=== PATIENT | male | born 1930 | race Caucasian/White ===

== ENCOUNTER 2017-07-15 16:06 | Inpatient (IN) | payer OTHER, BC ==
[~2017-07-15] VITALS: Ht 182.9 cm; Wt 99.0 kg
[~2017-07-15 16:06] MED LIST: ACET-1138 PO; ASPEC325 PO; ATOR-22 PO; CYCL10TA6 PO; DOCU-94 PO; FINA5TAB PO; FRRG PO; GABA-112 PO; HYDR12.55 PO; IBUP-1451 PO; LOSA50TA6 PO; METO25TA56 PO; PANT40TA PO; POTA20TA16 PO; TAMS0.4C38 PO; TERA1CAP63 PO; ULT50X PO; ZINC PO
[2017-07-15 16:53] LABS: BASO % 0.3 %; BASO ABS # 0.03 K/uL (0-0.2); EOS % 0.3 %; EOS ABS # 0.03 K/uL (0-0.5); HEMATOCRIT 42.5 % (42-52); HEMOGLOBIN 15.2 g/dL (14.0-18.0); IG# 0.05 K/uL (0.00-0.02); LYMPH % 6.4 %; LYMPH ABS # 0.63 K/uL (1.2-3.4); MEAN CELL VOLUME 95.7 fL (80-100); MEAN CORPUSCULAR HEMOGLOBIN 34.2 pg (25-34); MEAN CORPUSCULAR HGB CONC 35.8 g/dl (32-36); MONO % 7.6 %; MONO ABS # 0.75 K/uL (0.11-0.59); NEUT % 84.9 %; NEUT ABS # 8.33 K/uL (1.4-6.5); PLATELET COUNT 138 K/uL (130-400); RED CELL DISTRIBUTION WIDTH CV 13.3 % (11.5-14.5); RED CELL DISTRIBUTION WIDTH SD 46.3 fL (36.4-46.3); WHITE BLOOD COUNT 9.82 K/uL (4.8-10.8)
[2017-07-15 17:03] LABS: INR 1.1 (0.9-1.1); PTT PATIENT 23.6 SECONDS (21.0-31.0)
[2017-07-15 17:03] LABS: ISTAT CREATININE 1.1 mg/dl (0.6-1.3); ISTAT IONIZED CALCIUM 0.99 mmol/l (1.12-1.32); ISTAT POTASSIUM 3.9 mEq/L (3.3-5.0)
[2017-07-15 17:16] LABS: ALBUMIN 3.8 gm/dl (3.4-5.0); ALT/SGPT 26 U/L (12-78); BLOOD UREA NITROGEN 19 mg/dl (7-18); CALCIUM 8.3 mg/dl (8.5-10.1); CARBON DIOXIDE 24 mmol/L (21-32); CREATININE 1.25 mg/dl (0.60-1.40); GLUCOSE 169 mg/dl (70-99); LIPASE 134 U/L (73-393); POTASSIUM 3.7 mmol/L (3.5-5.1); SODIUM 137 mmol/L (136-145)
[2017-07-15 17:25] LABS: ALKALINE PHOSPHATASE 84 U/L (45-117); AST/SGOT 34 U/L (15-37); TOTAL PROTEIN 7.5 gm/dl (6.4-8.2)
[2017-07-15] MEDS ORDERED: OPTIRAY 320 IV PRN (17:30)
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
[2017-07-15] MEDS ORDERED: ONDANSETRON INJ 2 MG/ML 2 ML VIAL IV STA (18:10)
[2017-07-15] MEDS ORDERED: MoRPHine SULFATE 2 MG/ML CARP IV STA (18:10)
[2017-07-15] MEDS ORDERED: MULT-513 PO (18:40)
[2017-07-15] MEDS ORDERED: ASCA500 PO (18:40)
[2017-07-15] MEDS ORDERED: CHOL400C7 PO (18:40)
[2017-07-15] MEDS ORDERED: FERR1TAB13 PO (18:40)
[2017-07-15] MEDS ORDERED: OMEG10002 PO (18:40)
[2017-07-15] MEDS ORDERED: CYAN100T PO (18:40)
[2017-07-15] MEDS ORDERED: VITA1TAB4 PO (18:40)
[2017-07-15] MEDS ORDERED: ZINCCAP5 PO (18:40)
[2017-07-15] MEDS ORDERED: CRD4 PO (18:40)
[2017-07-15] MEDS ORDERED: VNTHFA/IN INH (18:40)
[2017-07-15] MEDS ORDERED: SNC/20 PO (18:40)
[2017-07-15] MEDS ORDERED: CLC100 PO (18:40)
[2017-07-15] MEDS ORDERED: ONDANSETRON INJ 2 MG/ML 2 ML VIAL IV PRN (18:45)
[2017-07-15] MEDS ORDERED: IBUPROFEN 800 MG TAB PO PRN (18:45)
[2017-07-15] MEDS ORDERED: ZOLPIDEM TARTRATE 5 MG TAB PO PRN (18:45)
[2017-07-15] MEDS ORDERED: CYCLOBENZAPRINE HCL 10 MG TAB PO PRN (18:45)
[2017-07-15] MEDS ORDERED: MoRPHine SULFATE 4 MG/ML 1 ML CARP\\VIAL IV PRN (18:45)
[2017-07-15] MEDS ORDERED: MAGNESIUM HYDROXIDE SUSP 30 ML UDC PO PRN (18:45)
[2017-07-15] MEDS ORDERED: POLYETHYLENE (MIRALAX) 17 GM PACK PO PRN (18:45)
[2017-07-15] MEDS ORDERED: ALUMINUM/MAGNESIUM/SIMETH (MAALOX MAX) 30 ML UDC PO PRN (18:45)
[2017-07-15] MEDS ORDERED: DOCUSATE SODIUM 100 MG CAP PO PRN (18:45)
[2017-07-15] MEDS ORDERED: ACETAMINOPHEN 325 MG TAB PO PRN (18:45)
[2017-07-15] MEDS ORDERED: HydrALAZINE HCL 20 MG/ML VIAL IV. PRN (19:00)
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
[2017-07-15] MEDS: HYDROCODONE/ACETAMIN 5/325MG TAB PO PRN (19:25)
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
--- NOTE | 2017-07-15 20:11 | DIAGNOSTIC IMAGING REPORT ---
SOFT TISS HEAD/NECK-THYROID CLINICAL HISTORY: 86 years-old Male presenting with thyroid nodule. TECHNIQUE: Real-time grayscale and color Doppler ultrasound imaging of the thyroid and base of the neck was performed. COMPARISON: CT chest performed the same day. FINDINGS: Right lobe: Normal echogenicity and echotexture. The right lobe of the thyroid measures 1.4 x 4.3 x 1.6 cm. No nodules. No parenchymal hyperemia. Left lobe: Normal echogenicity and echotexture. The left lobe of the thyroid measures 2.7 x 4.4 x 2.0 cm. Lower pole well-defined, taller than wide heterogeneously hyperechoic nodule with internal calcification. This nodule measures 2.3 x 2.5 x 1.7 cm. No parenchymal hyperemia. Isthmus: The isthmus measures 2 mm in thickness. No nodules. IMPRESSION: 2.5 cm low suspicion to intermediate suspicion pattern nodule in the lower pole of the left thyroid lobe. Fine-needle aspiration recommended per the [place] [employer] criteria. This is nonurgent and can be done on an outpatient basis. Electronically signed by: Cliff Mcgregor M.D. 07/15/2017 8:09 PM Dictated Date/Time: 07/15/2017 8:06 PM
[2017-07-15 20:43] VITALS: BP 181/80; PULSE 85; TEMP 36.7; O2SAT 99; Ht 182.9 cm; Wt 99.0 kg
[2017-07-15] MEDS: SODIUM CHLORIDE 0.9% 1000ML 1,000 ML IV SCH (20:45)
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
[2017-07-15] MEDS: DOXAZosin MESYLATE TAB 4 MG TAB PO SCH (22:30)
[2017-07-15] MEDS: ATORVASTATIN 20 MG TAB PO SCH (22:30)
[2017-07-15] MEDS: GABAPENTIN 100 MG CAP PO SCH (22:30)
[2017-07-15] MEDS: ALBUTEROL HFA 8 GM INHALER INH SCH (22:31)
[2017-07-15] MEDS: HEPARIN SOD 5000 UNIT/0.5 ML CARP SQ SCH (22:32)
[2017-07-15 23:45] VITALS: BP 121/63; PULSE 92; TEMP 37.1; O2SAT 97
[2017-07-16] VITALS (8 sets, daily range): BP systolic 123–171; BP diastolic 67–85; PULSE 78–98; TEMP 36.4–37.2; O2SAT 96–99
[2017-07-16] MEDS ORDERED: PERFLUTREN LIPID MICROSPHERE (DEFINITY) IV ONE (07:13)
[2017-07-16] MEDS: ALBUTEROL HFA 8 GM INHALER INH SCH ×3 (07:37→20:26)
[2017-07-16] MEDS: CEROVITE ADV FORMULA TAB PO SCH (07:38)
[2017-07-16] MEDS: FINASTERIDE 5 MG TAB PO SCH (07:38)
[2017-07-16] MEDS: CYANOCOBALAMIN 100 MCG TAB (VIT B-12) PO SCH (07:38)
[2017-07-16] MEDS: PANTOprazole SOD 40 MG TAB PO SCH (07:38)
[2017-07-16] MEDS: ASCORBIC ACID 500 MG TAB PO SCH (07:38)
[2017-07-16] MEDS: HYDROCHLOROTHIAZIDE 25 MG TAB PO SCH (07:39)
[2017-07-16] MEDS: ASPIRIN 81 MG ECTAB PO SCH (07:39)
[2017-07-16] MEDS: CHOLECALCIFEROL 400 INTER.UNIT TAB PO SCH (07:40)
[2017-07-16] MEDS: TROSPIUM: ORDER AWAITING ACTION SCH ×2 (07:40→15:34)
[2017-07-16] MEDS: OMEGA-3 (PURIFIED FISH OIL) 1 GM CAP PO SCH (07:40)
[2017-07-16] MEDS: HEPARIN SOD 5000 UNIT/0.5 ML CARP SQ SCH ×2 (07:42→20:29)
[2017-07-16] MEDS: HYDROCODONE/ACETAMIN 5/325MG TAB PO PRN (07:43)
[2017-07-16] MEDS: SODIUM CHLORIDE 0.9% 1000ML 1,000 ML IV SCH (07:43)
[2017-07-16 08:06] LABS: CALCIUM 7.7 mg/dl (8.5-10.1); CREATININE 1.06 mg/dl (0.60-1.40); POTASSIUM 3.5 mmol/L (3.5-5.1)
[2017-07-16 08:09] LABS: PHOSPHORUS 2.8 mg/dl (2.5-4.9)
[2017-07-16 08:31] LABS: BASO % 0.6 %; BASO ABS # 0.03 K/uL (0-0.2); EOS % 2.5 %; EOS ABS # 0.12 K/uL (0-0.5); HEMATOCRIT 35.5 % (42-52); HEMOGLOBIN 12.2 g/dL (14.0-18.0); IG# 0.04 K/uL (0.00-0.02); LYMPH % 22.9 %; LYMPH ABS # 1.11 K/uL (1.2-3.4); MEAN CELL VOLUME 96.7 fL (80-100); MEAN CORPUSCULAR HEMOGLOBIN 33.2 pg (25-34); MEAN CORPUSCULAR HGB CONC 34.4 g/dl (32-36); MEAN PLATELET VOLUME 10.1 fL (7.4-10.4); MONO % 11.5 %; MONO ABS # 0.56 K/uL (0.11-0.59); NEUT % 61.7 %; NEUT ABS # 2.99 K/uL (1.4-6.5); PLATELET COUNT 107 K/uL (130-400); RED CELL DISTRIBUTION WIDTH CV 13.5 % (11.5-14.5); RED CELL DISTRIBUTION WIDTH SD 47.5 fL (36.4-46.3); WHITE BLOOD COUNT 4.85 K/uL (4.8-10.8)
[2017-07-16] MEDS ORDERED: METOPROLOL TARTRATE 25 MG TAB PO SCH (09:00)
[2017-07-16] MEDS ORDERED: MAGNESIUM SULFATE 1GM / D5W 1 GM in PREMIXED IN D5W 100 ML IV ONE (09:00)
[2017-07-16] MEDS ORDERED: LOSARTAN POTASSIUM 50 MG TAB PO SCH (09:00)
--- NOTE | 2017-07-16 09:26 | ECHOCARDIOGRAM REPORT ---
*NOTICE TO RECEIVING REPUBLICAN AGENCY This information is strictly Confidential and protected under [place] law. [place] law prohibits you from making any further disclosure of this information unless further disclosure is expressly permitted by the written consent of the person to whom it pertains or is authorized by law. A general authorization for the release of medical or other information is not sufficient for this purpose. Hospital accepts no responsibility if the information is made available to any other person, INCLUDING THE PATIENT. Interpretation Summary * Name: JOSE G ROBERSON Study Date: 07/16/2017 06:43 AM BP: 123/71 mmHg * Patient Location: C.2T\S\S242\S\2 HR: 88 * : 1930 (M/d/yyyy) Gender: Male Height: 72 in * Age: 86 yrs Ethnicity: [place] Weight: 217 lb * Ordering Physician: Leonard Champion * Referring Physician: Self, Referred * Performed By: Danielle Reyes RDCS * * Reason For Study: A-fib * BSA: 2.2 m2 * -- Conclusions -- * Left ventricular systolic function is normal. * The left ventricular wall motion is normal. * Aortic valve sclerosis mild, without significant aortic valvular stenosis. * Right ventricular systolic pressure is normal. Procedure Details * A complete two-dimensional transthoracic echocardiogram was performed (2D, M-mode, Doppler and color flow Doppler). * A contrast injection of Definity was performed to improve assessment of LV function. * Contrast was injected into an intravenous site in the left arm. * One vial of Definity ultrasound contrast was diluted in normal saline to a total volume of 10 ml. A total of '2' ml of solution was administered during imaging. * Lot # [id number] of Definity utilized for procedure. * Expiration date 1 JUL 30. * The attending nurse who injected the contrast agent was Tirso Hill RN. Left Ventricle * The left ventricle is normal in size. * There is normal left ventricular wall thickness. * Ejection Fraction = 65-70%. * Left ventricular systolic function is normal. * The left ventricular wall motion is normal. Right Ventricle * The right ventricle is normal in size and function. Atria * The left atrial size is normal. * Right atrial size is normal. Mitral Valve * The mitral valve anatomy is normal. * There is no mitral regurgitation noted. Tricuspid Valve * The tricuspid valve is not well visualized, but is grossly normal. * There is trace tricuspid regurgitation. * Right ventricular systolic pressure is normal. Aortic Valve * The aortic valve is not well visualized. * Aortic valve sclerosis mild, without significant aortic valvular stenosis. * No hemodynamically significant valvular aortic stenosis. * There is no significant aortic regurgitation. Great Vessels * The aortic root is normal size. Pericardium/Pleural * There is no pericardial effusion. Great Vessels * Normal inferior vena cava diameter and respiratory variation suggests normal central venous pressure. MMode 2D Measurements and Calculations IVSd 1.0 cm LVIDd 4.1 cm LVIDs 2.6 cm LVPWd 1.2 cm IVS/LVPW 0.87 FS 36.1 % EDV(Teich) 73.6 ml ESV(Teich) 24.8 ml EF(Teich) 66.3 % EDV(cubed) 68.2 ml ESV(cubed) 17.8 ml EF(cubed) 74.0 % LV mass(C)d 145.8 grams LV mass(C)dI 66.1 grams/m\S\2 SV(Teich) 48.8 ml SI(Teich) 22.1 ml/m\S\2 SV(cubed) 50.4 ml SI(cubed) 22.9 ml/m\S\2 Ao root diam 3.8 cm Ao root area 11.4 cm\S\2 LA dimension 3.4 cm asc Aorta Diam 3.5 cm LA/Ao 0.89 LVAd ap4 27.2 cm\S\2 LVLd ap4 7.1 cm EDV(MOD-sp4) 82.6 ml EDV(sp4-el) 88.2 ml LVAs ap4 13.0 cm\S\2 LVLs ap4 5.7 cm ESV(MOD-sp4) 24.4 ml ESV(sp4-el) 24.8 ml EF(MOD-sp4) 70.5 % EF(sp4-el) 71.9 % LVAd ap2 30.8 cm\S\2 LVLd ap2 6.9 cm EDV(MOD-sp2) 108.9 ml EDV(sp2-el) 116.8 ml LVAs ap2 15.9 cm\S\2 LVLs ap2 5.7 cm ESV(MOD-sp2) 35.2 ml ESV(sp2-el) 37.3 ml EF(MOD-sp2) 67.7 % EF(sp2-el) 68.1 % LVLd %diff -3.33 % EDV(MOD-bp) 94.4 ml LVLs %diff -0.19 % ESV(MOD-bp) 29.4 ml EF(MOD-bp) 68.9 % SV(MOD-sp4) 58.3 ml SI(MOD-sp4) 26.4 ml/m\S\2 SV(MOD-sp2) 73.7 ml SI(MOD-sp2) 33.4 ml/m\S\2 SV(MOD-bp) 65.1 ml SI(MOD-bp) 29.5 ml/m\S\2 SV(sp4-el) 63.4 ml SI(sp4-el) 28.7 ml/m\S\2 SV(sp2-el) 79.6 ml SI(sp2-el) 36.1 ml/m\S\2 Doppler Measurements and Calculations MV E max satya 137.1 cm/sec MV dec time 0.26 sec Ao V2 max 165.6 cm/sec Ao max PG 11.0 mmHg Ao max PG (full) 6.5 mmHg LV V1 max PG 4.5 mmHg LV V1 max 105.9 cm/sec PA V2 max 88.2 cm/sec PA max PG 3.1 mmHg PA acc slope 303.7 cm/sec\S\2 PA acc time 0.15 sec TR max satya 114.0 cm/sec PA pr(Accel) 9.3 mmHg
[2017-07-16] MEDS ORDERED: NURSING VERBAL MED ORDER ONE (13:15)
[2017-07-16] MEDS ORDERED: LOSARTAN POTASSIUM 50 MG TAB PO ONE (13:30)
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
[2017-07-16] MEDS: DOXAZosin MESYLATE TAB 4 MG TAB PO SCH (20:25)
[2017-07-16] MEDS: ATORVASTATIN 20 MG TAB PO SCH (20:26)
[2017-07-16] MEDS: GABAPENTIN 100 MG CAP PO SCH (20:26)
[2017-07-16] MEDS ORDERED: METOPROLOL SUCC 25MG EXT REL TAB PO SCH (21:00)
[2017-07-17 03:45] VITALS: BP 132/75; PULSE 78; TEMP 36.7; O2SAT 97
[2017-07-17 07:32] VITALS: BP 133/81; PULSE 76; TEMP 36.7; O2SAT 95
[2017-07-17 07:43] LABS: BASO % 0.5 %; BASO ABS # 0.02 K/uL (0-0.2); EOS % 2.6 %; HEMATOCRIT 36.4 % (42-52); HEMOGLOBIN 12.3 g/dL (14.0-18.0); IG# 0.01 K/uL (0.00-0.02); LYMPH % 24.1 %; LYMPH ABS # 0.93 K/uL (1.2-3.4); MEAN CELL VOLUME 96.8 fL (80-100); MEAN CORPUSCULAR HEMOGLOBIN 32.7 pg (25-34); MEAN CORPUSCULAR HGB CONC 33.8 g/dl (32-36); MEAN PLATELET VOLUME 9.7 fL (7.4-10.4); MONO % 11.7 %; MONO ABS # 0.45 K/uL (0.11-0.59); NEUT % 60.8 %; NEUT ABS # 2.35 K/uL (1.4-6.5); PLATELET COUNT 104 K/uL (130-400); RED CELL DISTRIBUTION WIDTH CV 13.2 % (11.5-14.5); WHITE BLOOD COUNT 3.86 K/uL (4.8-10.8)
[2017-07-17] MEDS: ALBUTEROL HFA 8 GM INHALER INH SCH ×2 (07:48→14:00)
[2017-07-17] MEDS: OMEGA-3 (PURIFIED FISH OIL) 1 GM CAP PO SCH (07:51)
[2017-07-17] MEDS: HYDROCHLOROTHIAZIDE 25 MG TAB PO SCH (07:52)
[2017-07-17] MEDS: ASCORBIC ACID 500 MG TAB PO SCH (07:52)
[2017-07-17] MEDS: ASPIRIN 81 MG ECTAB PO SCH (07:52)
[2017-07-17] MEDS: CHOLECALCIFEROL 400 INTER.UNIT TAB PO SCH (07:52)
[2017-07-17] MEDS: PANTOprazole SOD 40 MG TAB PO SCH (07:53)
[2017-07-17] MEDS: FINASTERIDE 5 MG TAB PO SCH (07:53)
[2017-07-17] MEDS: CEROVITE ADV FORMULA TAB PO SCH (07:53)
[2017-07-17] MEDS: CYANOCOBALAMIN 100 MCG TAB (VIT B-12) PO SCH (07:53)
[2017-07-17] MEDS: HYDROCODONE/ACETAMIN 5/325MG TAB PO PRN (07:56)
[2017-07-17] MEDS: TROSPIUM: ORDER AWAITING ACTION SCH ×2 (08:00)
[2017-07-17 08:12] LABS: CALCIUM 8.1 mg/dl (8.5-10.1); CREATININE 1.12 mg/dl (0.60-1.40); PHOSPHORUS 2.8 mg/dl (2.5-4.9); POTASSIUM 3.5 mmol/L (3.5-5.1)
[2017-07-17] MEDS: HEPARIN SOD 5000 UNIT/0.5 ML CARP SQ SCH (08:24)
[2017-07-17] MEDS ORDERED: LOSARTAN POTASSIUM 50 MG TAB PO SCH (09:00)
[2017-07-17 10:32] VITALS: BP 154/71; PULSE 108; O2SAT 96
[2017-07-17] MEDS ORDERED: MAGNESIUM SULFATE 1GM / D5W 1 GM in PREMIXED IN D5W 100 ML IV ONE (11:30)
[2017-07-17] MEDS ORDERED: POTASSIUM CHLORIDE 10 MEQ TABCR PO ONE (11:30)
[2017-07-17] MEDS ORDERED: LOSA50TA6 PO (11:51)
[2017-07-17] MEDS ORDERED: METO-452 PO (11:51)
[2017-07-17] MEDS ORDERED: HYDR-5688 PO (11:51)
[2017-07-17] MEDS ORDERED: ACET-1047 PO (11:51)
[2017-07-17] MEDS ORDERED: CYCL10TA6 PO (11:51)
[2017-07-17] MEDS ORDERED: APIX1TAB3 PO (11:51)
[2017-07-17 11:52] VITALS: BP 137/76; PULSE 84; TEMP 36.7; O2SAT 97
--- NOTE | 2017-07-17 12:41 | CARDIOLOGY PROGRESS NOTE ---
DATE: 07/17/2017 SUBJECTIVE: Mr. Gavin is resting comfortably in bed without complaints of chest pain, dyspnea, or palpitations. A long discussion was held with the patient regarding his new onset atrial fibrillation and methods of treatment. OBJECTIVE: VITAL SIGNS: Blood pressure 137/76 with a regular pulse of 80. Respiratory rate is 18. The patient is afebrile at 36.7 degrees Celsius. Saturations 97% on room air. NECK: Supple with full carotid upstrokes. No carotid bruits. Jugular venous pressure is flat at 90 degrees. There is no thyromegaly. CARDIOVASCULAR: Reveals a regular rhythm with normal S1 and S2. Heart sounds are distant. No obvious murmurs. LUNGS: Clear without rales, rhonchi, or wheezes. ABDOMEN: Soft, nontender without bruits. EXTREMITIES: Reveal intact radial artery pulses bilaterally. There is no peripheral edema. DATA: CBC notes hemoglobin 12.3, hematocrit 36.4, white count 3.6, and platelet count 104,000. Electrolytes note a sodium of 139, potassium 3.5, chloride 106, bicarbonate 26, BUN 12, creatinine 1.12, and glucose 129. quality assurance monitor notes sinus rhythm and sinus tachycardia. No recurrent atrial fibrillation. EKG this morning notes sinus rhythm with first degree AV block, but no other abnormalities. IMPRESSION AND PLAN: 1. Paroxysmal atrial fibrillation - we had a long discussion regarding anticoagulation therapy. [facility], and therefore, I suspect he will need to take warfarin. Would also increase the dose of his beta allan. 2. Hypertension -- controlled. 3. Dyslipidemia -- continue statin. 4. Benign prostatic hyperplasia. 5. Degenerative joint disease - status post bilateral total knee replacement. MTDD
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
[2017-07-17 13:21] VITALS: BP 137/76; PULSE 84; TEMP 36.7; O2SAT 97
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
== END 2017-07-17 15:11 | disposition home or self-care (01) | DRG 310 ==
LOC: EDBD 16:06 → C.EDB 16:07 → C.2T 18:47 → ENRESERV 18:55
PROVIDERS: ADMIT Hospitalist; ATTEND Family Medicine
DX: I48.91 Unspecified atrial fibrillation (principal); M54.6 Pain in thoracic spine; M54.2 Cervicalgia; R07.81 Pleurodynia; S09.90XA Unspecified injury of head, initial encounter; I11.9 Hypertensive heart disease without heart failure; E83.42 Hypomagnesemia; R11.0 Nausea; E04.1 Nontoxic single thyroid nodule; E78.5 Hyperlipidemia, unspecified; I45.81 Long QT syndrome; N40.0 Benign prostatic hyperplasia without lower urinary tract symptoms; E66.9 Obesity, unspecified; Z79.899 Other long term (current) drug therapy; Z96.653 Presence of artificial knee joint, bilateral; Z68.29 Body mass index [BMI] 29.0-29.9, adult; Z87.891 Personal history of nicotine dependence; Z88.8 Allergy status to other drugs, medicaments and biological substances; V47.5XXA Car driver injured in collision with fixed or stationary object in traffic accident, initial encounter; Y92.411 Interstate highway as the place of occurrence of the external cause; Y93.I9 Activity, other involving external motion; Y99.8 Other external cause status

== ENCOUNTER 2021-02-24 09:15 | Observation (INO) ==
--- NOTE | 2021-02-07 12:15 | PAT Medication Instructions ---
Medication Instructions Date of Service February 07, 2021 Home Medications acetaminophen 325 mg tablet (Tylenol) 650 mg PO Q4 PRN apixaban 5 mg tablet 5 mg PO BID atorvastatin 20 mg tablet (Lipitor) 20 mg PO DAILY doxazosin 4 mg tablet,extended release 24 hr (Cardura XL) 4 mg PO DAILY losartan 50 mg tablet (Cozaar) 50 mg PO DAILY potassium chloride 20 mEq tablet,extended release(part/cryst) (Klor-Con M) 40 meq PO BID trospium 20 mg tablet 20 mg PO BID zinc 50 mg tablet 50 mg PO DAILY hydrochlorothiazide 25 mg tablet 12.5 mg PO DAILY cholecalciferol (vitamin D3) 125 mcg (5,000 unit) tablet (Vitamin D3) 125 mcg PO DAILY pantoprazole 40 mg tablet,delayed release 40 mg PO DAILY tolterodine 1 mg tablet 1 mg PO DAILY ASK your prescriber and surgeon apixaban 5 mg tablet 5 mg PO BID DO NOT take the morning of surgery losartan 50 mg tablet (Cozaar) 50 mg PO DAILY potassium chloride 20 mEq tablet,extended release(part/cryst) (Klor-Con M) 40 meq PO BID trospium 20 mg tablet 20 mg PO BID zinc 50 mg tablet 50 mg PO DAILY hydrochlorothiazide 25 mg tablet 12.5 mg PO DAILY cholecalciferol (vitamin D3) 125 mcg (5,000 unit) tablet (Vitamin D3) 125 mcg PO DAILY tolterodine 1 mg tablet 1 mg PO DAILY Take morning of surgery With a small sip of water, OTHERWISE NOTHING TO EAT OR DRINK AFTER MIDNIGHT: acetaminophen 325 mg tablet (Tylenol) 650 mg PO Q4 PRN (okay to take up to 4 hours prior to surgery if needed) atorvastatin 20 mg tablet (Lipitor) 20 mg PO DAILY doxazosin 4 mg tablet,extended release 24 hr (Cardura XL) 4 mg PO DAILY trospium 20 mg tablet 20 mg PO BID pantoprazole 40 mg tablet,delayed release 40 mg PO DAILY Take evening before surgery acetaminophen 325 mg tablet (Tylenol) 650 mg PO Q4 PRN (if needed) potassium chloride 20 mEq tablet,extended release(part/cryst) (Klor-Con M) 40 meq PO BID trospium 20 mg tablet 20 mg PO BID Other Notes If you have any questions please call us at [phone] or [phone] or [phone] or [phone]
--- NOTE | 2021-02-08 10:04 | Anesthesiology Consultation ---
Date of Service February 08, 2021 Assessment & Plan (1) Encounter for pre-operative examination: - Preop UA: Surgeon ordered preop urine testing. Patient unable to void at PAT visit. He states he thinks it would be very difficult obtaining at later date. Left message with surgeon's office to either obtain or order for AM DOS at their discretion. - COVID screening: Per assessment on 02/08: Travel screen negative, no known COVID-19 positive contacts or current COVID-19 related symptoms. Patient vaccinated. Surgeon arranging preop COVID testing. Awaiting results. - Eliquis instructions: per surgeon/prescriber Chart Review Chart Review: Acceptable Risk for Surgery and Patient seen in Pre Admission Testing History Surgery Operation Date: 02/24/21 13:00 Proposed Procedures p Transurethral Resection Prostate - Faisal Dos Santos DO Height/Weight Height: 6 ft Weight: 97.2 kg Allergies Allergy/AdvReac Type Severity Reaction Status Date / Time lisinopril Allergy Intermediate Lip Verified 02/07/21 09:20 swelling Medications Home Medications Medication Instructions Recorded Confirmed Last Taken acetaminophen 325 mg tablet 500 mg PO Q4 PRN 04/17/18 02/08/21 Unknown (Tylenol) apixaban 5 mg tablet 5 mg PO BID 04/17/18 02/07/21 10/22/18 atorvastatin 20 mg tablet (Lipitor) 20 mg PO DAILY 04/17/18 02/07/21 10/22/18 doxazosin 4 mg tablet,extended 4 mg PO DAILY 04/17/18 02/07/21 10/22/18 release 24 hr (Cardura XL) losartan 50 mg tablet (Cozaar) 50 mg PO DAILY 04/17/18 02/07/21 10/22/18 potassium chloride 20 mEq 40 meq PO DAILY 04/17/18 02/08/21 10/22/18 tablet,extended release(part/cryst) (Klor-Con M) trospium 20 mg tablet 20 mg PO BID 04/17/18 02/07/21 10/22/18 zinc 50 mg tablet 30 mg PO DAILY 04/17/18 02/08/21 10/22/18 hydrochlorothiazide 25 mg tablet 12.5 mg PO DAILY 10/22/18 02/07/21 10/22/18 cholecalciferol (vitamin D3) 125 125 mcg PO DAILY 02/07/21 02/07/21 Unknown mcg (5,000 unit) tablet (Vitamin D3) pantoprazole 40 mg tablet,delayed 40 mg PO DAILY 02/07/21 02/07/21 Unknown release tolterodine 1 mg tablet 1 mg PO DAILY 02/07/21 02/07/21 Unknown Past Medical History Medical History Afib on Eliquis, monitored by PCP Arthritis GERD (gastroesophageal reflux disease) Hearing deficit HTN (hypertension) Hx of gallstones Hyperlipidemia Poor historian Urinary frequency Exercise / Class Metabolic Activity III < 4 Walking/Shop/Light housework Past Family History Family History Other No family history of adverse response to anesthesia No pertinent family history Past Surgical History Surgical History History of colonoscopy History of cystoscopy History of herniorrhaphy History of tooth extraction History of total knee replacement R/L Past Anesthesia History No Hx of Anesthesia Complications and No Family Hx of Anesthesia Complications History of PONV No Hx of PONV and No Hx of Motion Sickness Social History Smoking Status: Never smoker tobacco type: smokeless tobacco Do You Dip or Chew Tobacco: Yes (Advised NPO DOS) Hx Alcohol Use: Yes Alcohol type: beer alcohol intake frequency: a few times a month substance use type: does not use Review of Systems Patient denies chest pain, shortness of breath, fever, chills, cough, wheezing, palpitations. Physical Exam Vital Signs VITALS BP 145/79 P 83 TEMP 98.2 SP02 98%RA RESP 18 PHYSICAL Full cervical extension range of motion. Full TMJ range of motion. TMD 3 finger breaths Mallampati Score 3 Dentition: several missing teeth (few remaining) Lungs: clear throughout to auscultation Cardiac: regular rate, irregular rhythm, distant heart sounds Spine: normal Carotid arteries: negative bruit Extremities: no edema Lab Results Anesthesia Preop Results Results Anesthesia Widget: WBC 7.88 K/uL (4.8-10.8) 02/08/21 Hgb 14.6 g/dL (14.0-18.0) 02/08/21 Hct 42.7 % (42-52) 02/08/21 Plt 128 K/uL (130-400) L 02/08/21 Na 140 mmol/L (136-145) 02/08/21 K 3.3 mmol/L (3.5-5.1) L 02/08/21 Cl 108 mmol/L (98-107) H 02/08/21 CO2 26 mmol/L (21-32) 02/08/21 BUN 9 mg/dl (7-18) 02/08/21 Creat 0.95 mg/dl (0.6-1.4) 02/08/21 Glucose Level 132 mg/dl (70-99) H 02/08/21 Testing Electrocardiogram Date: 02/08/21 A. fib at 60bpm. Low voltage QRS. unconfirmed report. Chest X-Ray Date: 02/08/21 FINDINGS: Lung volumes are normal. Lungs are clear. There is no pneumothorax or pleural effusion. Mild cardiomegaly is unchanged. Mediastinal contours are normal. There is no evidence for pulmonary edema. IMPRESSION: No acute cardiopulmonary findings. Stable mild cardiomegaly. Echocardiogram Date: 07/16/17 EF 65-70% No RWMA. Mild AV sclerosis.
[~2021-02-24 09:15] MED LIST changes: -ACET-1138 PO; -ASPEC325 PO; -ATOR-22 PO; -CYCL10TA6 PO; -DOCU-94 PO; -FINA5TAB PO; -FRRG PO; -GABA-112 PO; -HYDR12.55 PO; -IBUP-1451 PO; +LACTATED RINGER'S 1,000 ML IV SCH; -LOSA50TA6 PO; -METO25TA56 PO; -PANT40TA PO; -POTA20TA16 PO; -TAMS0.4C38 PO; -TERA1CAP63 PO; -ULT50X PO; -ZINC PO; +ceFAZolin 2000MG 2,000 MG/15 ML SYR IV SCH
[2021-02-24] MEDS ORDERED: ONDANSETRON INJ 2 MG/ML 2 ML VIAL IV PRN ×2 (10:35→13:29)
[2021-02-24] MEDS ORDERED: oxyCODONE/ACETAMINOPHEN 5mg/325mg TAB PO PRN (10:35)
[2021-02-24] MEDS ORDERED: MoRPHine SULFATE 2 MG/ML CARP IV PRN (10:35)
[2021-02-24] MEDS ORDERED: BELLADONNA/OPIUM SUPP 60 MG SUPP PR PRN (10:35)
--- NOTE | 2021-02-24 10:35 | History & Physical Bridge Note ---
Date of Service February 24, 2021 History & Physical Bridge Note I have examined the patient, reviewed the History & Physical and in the interval since the performance of the History & Physical I have noted the following changes of clinical significance: no changes noted
[2021-02-24 12:47] LABS: Basophils # (auto) 0.01 K/uL (0-0.2); Basophils % (auto) 0.1 %; Eosinophils # (auto) 0.04 K/uL (0-0.5); Eosinophils % (auto) 0.6 %; Hematocrit (blood only) 40.8 % (42-52); Hemoglobin 13.6 g/dL (14.0-18.0); Immature Granulocytes # (auto) 0.05 K/uL (0.00-0.02); Immature Granulocytes % (auto) 0.7 %; Lymphocytes % (auto) 11.9 %; Mean Corpuscular Hgb Conc 33.3 g/dL (32-36); Mean Platelet Volume 9.6 fL (7.4-10.4); Monocytes # (auto) 0.68 K/uL (0.11-0.59); Monocytes % (auto) 10.1 %; Neutrophils # (auto) 5.17 K/uL (1.4-6.5); Neutrophils % (auto) 76.6 %; Platelet Count 117 K/uL (130-400); RDW Coefficient of Variation 13.8 % (11.5-14.5); RDW Standard Deviation 49.8 fL (36.4-46.3); Red Blood Count 4.12 M/uL (4.7-6.1); White Blood Count 6.75 K/uL (4.8-10.8)
[2021-02-24 13:03] LABS: Albumin Level 3.2 gm/dl (3.4-5.0); BUN Creatinine Ratio 7.2 (10-20); Calcium 7.7 mg/dl (8.5-10.1); Creatinine Clr Calc Pharmacy 25.4 ml/min; Est GFR (Non-African American) 23.3 ml/min; Potassium 3.4 mmol/L (3.5-5.1)
[2021-02-24 13:06] LABS: Albumin Globulin Ratio 0.9 (0.9-2); Bilirubin,Total 1.2 mg/dl (0.2-1); Globulin 3.4 gm/dl (2.5-4.0); Total Protein 6.6 gm/dl (6.4-8.2)
[2021-02-24] MEDS ORDERED: fentaNYL citrate 100 MCG/2 ML VIAL ONE (13:22)
[2021-02-24] MEDS ORDERED: LIDOCAINE 2% 2 ML VIAL/AMP(20MG/ML) INFIL ONE (13:22)
[2021-02-24] MEDS ORDERED: ONDANSETRON INJ 2 MG/ML 2 ML VIAL ONE (13:23)
[2021-02-24] MEDS ORDERED: PROPOFOL IV EMULSION 10 MG/ML 20 ML VIAL IV ONE (13:23)
[2021-02-24] MEDS ORDERED: ATROPINE SULFATE 0.1 MG/ML 10ML SYR IV PRN (13:29)
[2021-02-24] MEDS ORDERED: fentaNYL citrate 100 MCG/2 ML VIAL IV PRN (13:29)
[2021-02-24] MEDS ORDERED: ePHEDrine sulfate 50 MG/ML AMP IV PRN (13:29)
[2021-02-24] MEDS ORDERED: BELLADONNA/OPIUM SUPP 60 MG SUPP PR ONE (13:31)
--- NOTE | 2021-02-24 15:10 | Operative Report ---
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 Drains 24Fr [address] Catheter Anesthesia Type General Complications none Disposition Disposition: Recovery Room Indications Patient with obstruction due to prostate enlargement. Risks and benefits discussed at length. Description of Procedure Patient was consented and brought back to the operating room. Patient was placed under anesthesia in the supine position and moved to the dorsal lithotomy position. Patient was prepped and draped in the regular sterile fashion. A time out was completed. A 30degree Cystoscope was placed into the bladder and the entire bladder was examined. The UO's were identified as well as the bladder neck, trigone, dome, and the other important landmarks. The prostatic urethra and large lobes/adenoma was assessed and the veru and bladder neck identified and area/size was assessed. The resection scope was placed and the fine bipolar loop was selected. Starting at the 5 and 7 o'clock positions, a channel was created from bladder neck to the veru. With the channel created, the flow improved greatly. The lateral lobes were then resected from the 1 and 11 o'clock position sweeping down to the channel. The tissue was resected to the capsule fibers. The Specimen was removed and sent for analysis. The resection bed and any bleeding areas were fulgurated/cauterized and the entire area inspected. All bleeding was controlled. The bladder was inspected a final time. The bladder was emptied and irrigated. All specimen and debris was removed. The scope was removed with the bladder partially full. A catheter was placed and balloon elevated. This was easily irrigated. The patient was cleaned, aroused from anesthesia, and transferred to the pacu in stable condition having tolerated the procedure well with no complications. I was present and participated in all aspects of the procedure. The patient will be monitored in the PACU until transferred. Plan to observe post op overnight. Home with catheter for 10 days. I attest to the content of the Intraoperative Record and any orders documented therein. Any exceptions are noted below.
[2021-02-24] MEDS ORDERED: hydrALAZINE HCL 20 MG/ML VIAL IV ONE (16:03)
[2021-02-24] MEDS ORDERED: hydrALAZINE HCL 20 MG/ML VIAL ONE (16:06)
--- NOTE | 2021-02-24 16:49 | Anesthesiology Progress Note ---
Date of Service February 24, 2021 Anesthesia Post Procedure Vital Signs Vital Signs: Temp Pulse Pulse Resp BP Pulse Ox 02/24/21 16:31 61 18 177/102 H 100 02/24/21 16:16 58 L 18 181/93 H 99 02/24/21 16:06 60 18 176/94 H 96 02/24/21 15:56 58 L 14 169/103 H 100 02/24/21 15:46 36.8 C 63 16 170/102 H 99 02/24/21 15:39 59 L 12 182/102 H 100 02/24/21 15:29 58 L 16 175/103 H 100 02/24/21 15:19 36 C L 67 14 175/103 H 100 02/24/21 10:04 36.9 C 75 18 178/109 H 99 Transfer of Care Handoff Completed per policy Notes Mental Status: alert / awake / arousable and participated in evaluation Patient Amnestic to Procedure: Yes Nausea / Vomiting: adequately controlled Pain: adequately controlled Airway Patency, RR, SpO2: stable & adequate BP & HR: stable & adequate Hydration State: stable & adequate Anesthetic Complications: no major complications apparent and Pt Satisfied with anesthetic care
[2021-02-24] MEDS ORDERED: POTASSIUM CHLORIDE 20 MEQ/15 ML UDC PO STA (21:12)
[2021-02-24] MEDS: SODIUM CHLORIDE 0.9% 1000ML 1,000 ML IV SCH (21:16)
--- NOTE | 2021-02-24 21:41 | Hospitalist Consultation ---
Date of Consultation February 24, 2021 Assessment & Plan (1) Afib: 89 yo M w/ pMHx. of Atrial fibrillation, HTN, Polyneuropathy, hospitalized for BPH w/ LUTZ s/p TURP consulted by Dr. Dos Santos for atrial fibrillation. s/p TURP - Pain control in place, PRN Tylenol and Morphine - care per Urology Atrial fibrillation, rate controlled, [id number] 3 for age and HTN - on a monitored floor - EKG ordered - Eliquis held prior to procedure, continue to hold to day and discuss restarting tomorrow - continue to optimize electrolytes DAX cr. 2.38 up from 0.95 prior - holding HCTZ and Losartan - fluids running at 85/hr - continue to trend with AM labs HTN well controlled currently 138/94 - holding HCTZ and Losartan as above - if BP becomes elevated consider IV Hydralazine Hypokalemia - 40 oral potassium replacement - ordered am labs to evaluate K and Mg Code: full Diet: regular DVT: holding in the setting of recent procedure (2) Hypertension: (3) Polyneuropathy: (4) BPH w urinary obs/LUTS: (5) Hematuria: Supervising Physician Co-Signing Physician Notes Attending addendum: I have physically seen this patient, have supervised the medical residents activities, and agree with the H&P unless as otherwise noted. Assessment and Plan: Status post TURP- Postoperative care per primary urology team Atrial fibrillation/hypertension- Continue monitored bed Continue to hold Eliquis and restart at time okay with urology DAX/hypokalemia- Creatinine 2.38 upon admission, with baseline 0.95 Hold HCTZ and losartan Follow serial laboratories Continue IV fluids Remaining orders and notations as noted History of Present Illness Reason for Consultation: Atrial fibrillation Requesting Physician: Dr. Dos Santos Attending Physician: Faisal Dos Santos, II, DO History of Present Illness Jose Gavin is a 89-year-old male here with a past medical history of atrial fibrillation, HTN, polyneuropathy, hospitalized for BPH w/ LUTZ s/p TURP. He was doing well this evening with no current complaints and pain free. He has had atrial fibrillation for years and states that he is in it every time he goes to the CT clinic. He currently explained that he has been taking his Eliquis once a day rather than twice a day as he is concerned about increased bleeding. He has not been taking Eliquis leading up to the procedure. He lives alone and has had multiple falls. He walks with a cane. I brought up PT and OT seeing him while he was in the hospital but he was not interested in that at this time. He has a history of hearing loss and is going to get hearing aides in the near future. He has used tobacco for a long time and currently is using chew, he is in the contemplative stage of quitting. I asked if he would like a nicotine patch and he deferred at this time. He drinks 2-3 drinks when a friend will come over 1Xmonth, and 1 drink with a family member about 1Xweek. No recreation drug use. Allergies Allergy/AdvReac Type Severity Reaction Status Date / Time lisinopril Allergy Intermediate Lip Verified 02/24/21 09:52 swelling Home Medications Medication Instructions Recorded Confirmed Type acetaminophen 325 mg tablet 500 mg PO Q4 PRN 04/17/18 02/24/21 History (Tylenol) apixaban 5 mg tablet 5 mg PO BID 04/17/18 02/24/21 History atorvastatin 20 mg tablet (Lipitor) 20 mg PO DAILY 04/17/18 02/24/21 History doxazosin 4 mg tablet,extended 4 mg PO DAILY 04/17/18 02/24/21 History release 24 hr (Cardura XL) losartan 50 mg tablet (Cozaar) 50 mg PO DAILY 04/17/18 02/24/21 History potassium chloride 20 mEq 40 meq PO DAILY 04/17/18 02/24/21 History tablet,extended release(part/cryst) (Klor-Con M) trospium 20 mg tablet 20 mg PO BID 04/17/18 02/24/21 History zinc 50 mg tablet 30 mg PO DAILY 04/17/18 02/24/21 History hydrochlorothiazide 25 mg tablet 12.5 mg PO DAILY 10/22/18 02/24/21 History cholecalciferol (vitamin D3) 125 125 mcg PO DAILY 02/07/21 02/24/21 History mcg (5,000 unit) tablet (Vitamin D3) pantoprazole 40 mg tablet,delayed 40 mg PO DAILY 02/07/21 02/24/21 History release tolterodine 1 mg tablet 1 mg PO DAILY 02/07/21 02/24/21 History cephalexin 500 mg capsule 500 mg PO BID 7 Days #14 cap 02/25/21 Rx Patient History Medical History Afib on Eliquis, monitored by PCP Arthritis GERD (gastroesophageal reflux disease) Hearing deficit HTN (hypertension) Hx of gallstones Hyperlipidemia Poor historian Urinary frequency Surgical History History of colonoscopy History of cystoscopy History of herniorrhaphy History of tooth extraction History of total knee replacement R/L Family History Other No family history of adverse response to anesthesia No pertinent family history Social History (Updated 10/22/18 @ 15:40 by Shayne Reyes) Smoking Status: Never smoker Second Hand Exposure: No; Hx Alcohol Use: Yes Alcohol type: beer Hx Substance Use: No Preferred Language: Kazakh Communication Ability: Effective Wound/Ostomy Clinical Nurse Specialist Required: No Beliefs That Will Affect Care: None Current Living Situation: Alone How many Children do You have: 6 Feels Safe at Home: Yes Assistive Devices: Cane and Walker Review of Systems Review of Systems: Constitutional: denies fevers, chills, nausea, vomiting, weight loss ENT: denies stuffiness, sneezing, sore throat admits chronic rhinorrhea Cardiac: denies chest pain, palpitations Pulm.: denies cough, shortness of breath admits billy sputum production that has been chronic GI: denies blood in stool admits diarrhea prior to surgery that he relates to eating peaches : admits polyuria and hematuria Physical Exam Constitutional: WD/WN, vitals as above Eyes: PERRL, conjunctivae normal, anicteric sclerae ENMT: external ear and nose normal, oropharynx normal Neck: normal visual inspection Respiratory: normal respiratory effort, lungs clear to auscultation Cardiovascular: Rate/Rhythm: + irregularly irregular Extremities: no edema Gastrointestinal (Abdomen): normal bowel sounds, soft, nontender, no hepatosplenomegaly Skin: no rashes, warm and dry Neurologic: no focal motor deficits and not confused Speech / Cognition: normal speech Psychiatric: A+Ox3, euthymic affect Results & Data Results & Data ([facility]) Vital Signs (Past 12 Hours) Vital Signs Temp Pulse Pulse Resp BP Pulse Ox 09/16/21 18:15 36.7 C 68 16 138/94 100 02/24/21 18:00 66 12 151/93 H 100 02/24/21 17:45 71 16 168/97 H 98 02/24/21 17:30 36.6 C 65 20 178/112 H 98 02/24/21 17:01 68 17 178/93 H 98 02/24/21 16:56 60 18 172/110 H 96 02/24/21 16:46 67 18 175/102 H 98 02/24/21 16:31 61 18 177/102 H 100 02/24/21 16:16 58 L 18 181/93 H 99 02/24/21 16:06 60 18 176/94 H 96 02/24/21 15:56 58 L 14 169/103 H 100 02/24/21 15:46 36.8 C 63 16 170/102 H 99 02/24/21 15:39 59 L 12 182/102 H 100 02/24/21 15:29 58 L 16 175/103 H 100 02/24/21 15:19 36 C L 67 14 175/103 H 100 02/24/21 10:04 36.9 C 75 18 178/109 H 99 CBC Results Results Complete Blood Count Results: RBC 3.84 M/uL (4.7-6.1) L 02/25/21 WBC 6.98 K/uL (4.8-10.8) 02/25/21 Hgb 12.9 g/dL (14.0-18.0) L 02/25/21 Hct 39.1 % (42-52) L 02/25/21 Plt Count 100 K/uL (130-400) L 02/25/21 Chemistry (BMP) Results BMP Results: Sodium 137 mmol/L (136-145) 02/25/21 Potassium 3.9 mmol/L (3.5-5.1) 02/25/21 Chloride 104 mmol/L (98-107) 02/25/21 BUN 17 mg/dl (7-18) 02/25/21 Creatinine 2.11 mg/dl (0.6-1.4) H 02/25/21 Glucose 167 mg/dl (70-99) H 02/25/21 Resident Activity Tracking Resident Involvement: Resident Care Provided Care Provided: [facility] Medicine
[2021-02-24] MEDS ORDERED: ACETAMINOPHEN 325 MG TAB PO PRN (21:55)
[2021-02-24] MEDS: ceFAZolin 2000MG 2,000 MG/15 ML SYR IV SCH (23:09)
[2021-02-24] MEDS: DOCUSATE SODIUM 100 MG CAP PO SCH (23:09)
[2021-02-25] MEDS: ceFAZolin 2000MG 2,000 MG/15 ML SYR IV SCH ×2 (06:45→13:39)
--- NOTE | 2021-02-25 07:44 | Hospitalist Progress Note ---
Date of Service February 25, 2021 Assessment & Plan (1) Afib: Plan: Jose is a 89 yo M w/ a known history of atrial fibrillation, HTN, polyneuropathy, hospitalized for BPH w/ LUTZ s/p TURP consulted by Dr. Dos Santos for atrial fibrillation. s/p TURP - Pain control in place, PRN Tylenol and Morphine - care per Urology Atrial fibrillation, rate controlled, [id number] 3 for age and HTN - Known history of AFib, noted back to 2018 on ECGs here and during this admission - Not on rate control medications - Last Echo in our system from 2018: Normal biventricular function - Eliquis held prior to procedure, continue to hold to day and discuss restarting tomorrow - Maintain K > 4, Mg > 2 DAX -- improving, baseline Cr ~0.95-1.1 - At presentation, BUN/Cr at 17/2.38 - Likely prerenal in setting of dehydration, HCTZ, losartan - Continue mIVF at 85 cc / hr for now - Recheck BMP at [id number] - if minimal improvement, would continue pushing hydration / PO until AM - strongly promote PO intake (>2L/day) - Start Eliquis 5mg b.i.d. in 1-2 days (post-op) - Recommend outpatient BMP on Sunday after discharge HTN - Overall, well controlled while here - Holding HCTZ/Losartan in setting of DAX - if BP becomes elevated consider IV Hydralazine Hypokalemia, Hypomagnesemia -- goal K 4, Mg 2 - Will do 40mg KCl IV x 1 now given K at 3.7 this AM - BMP in 3-4 days upon d/c -- would consider adding 20-40 mEq as outpatient if persistently low - Add MgOx 400mg PO qAM Code: full Diet: regular DVT: holding in the setting of recent procedure (2) Hypertension: (3) Polyneuropathy: (4) BPH w urinary obs/LUTS: (5) Hematuria: Admission and Anticipated Discharge Date Admission Date: February 24, 2021 Supervising Physician Co-Signing Physician Notes I personally examined the patient and verified all bagley points of history and exam, discussed case, and agree with decision making with Dr Oneal. Feeling okay. Creatinine discussed with patient. Vitals noted, in general he is awake and alert pleasant no distress. HEENT normocephalic atraumatic mucous membranes are moist. Breathing unlabored no accessory muscle use good effort. Skin shows no rashes no pallor or icterus. DAX/elevated creatininelikely prerenal. Could easily have also been obstructive from his BPHbut given that his creatinine was fairly recently normal, suspect more of a prerenal physiology. Holding ARB and diuretic, giving IV fluids. Unfortunately creatinine is not improving quick enough to clearly be safe for homecontinue IV fluids, follow-up basic metabolic panel in the morning. Once his creatinine is clearly showing improvement, then we can likely get him home with p.o. hydration, a temporary hold on his hydrochlorothiazide and losartan, and close outpatient follow-up with labs. Subjective NAEO. Feeling well this AM. No chest pain, palpitations, SOB. Post surgical pain under control No abdominal pain. No n/v. Review of Systems Review of Systems: as per HPI Physical Exam Physical Exam: General: Well appearing 89-year-old male lying back in his bed, relaxed, upon my arrival. NAD. HEENT: NCAT. Eyes - Sclera are white, anicteric, and without injection. Cardiac: Normal rate and irregular rhythm; S1 and S2 present with no murmurs, rubs, or gallops. Pulmonary: Good respiratory effort with symmetric expansion of the chest. No use of accessory muscles. Lungs were clear to auscultation bilaterally with no crackles or wheezes. Abdominal: Normoactive bowel sounds. Abdomen was soft, nondistended, and non- tender to palpation. Extremities: Upper and lower extremities are warm and well perfused. Radial and dorsalis pedis pulses were 2+ b/l. Capillary refill assessed in UE was < 3 sec. Psych: Well-developed, well-nourished, appropriately dressed for occasion. Behavior is cooperative and appropriate. Affect is WNL. Insight is appropriate. Results & Data Results & Data ([facility]) Vital Signs (Past 12 Hours) Vital Signs Temp Pulse Pulse Pulse Resp BP BP 02/25/21 07:37 77 02/25/21 02:00 75 02/24/21 23:00 36.7 C 72 20 161/89 H 02/24/21 20:57 36.6 C 75 18 152/86 H 02/24/21 19:50 36.7 C 79 18 159/82 H Pulse Ox 02/25/21 07:37 02/25/21 02:00 02/24/21 23:00 97 02/24/21 20:57 95 02/24/21 19:50 97 Resident Activity Tracking Resident Involvement: Resident Care Provided Care Provided: Adult Hospital Medicine
[2021-02-25 07:49] LABS: Basophils # (auto) 0.01 K/uL (0-0.2); Basophils % (auto) 0.1 %; Eosinophils # (auto) 0.08 K/uL (0-0.5); Eosinophils % (auto) 1.1 %; Hematocrit (blood only) 39.1 % (42-52); Hemoglobin 12.9 g/dL (14.0-18.0); Immature Granulocytes # (auto) 0.03 K/uL (0.00-0.02); Immature Granulocytes % (auto) 0.4 %; Lymphocytes # (auto) 0.78 K/uL (1.2-3.4); Lymphocytes % (auto) 11.2 %; Mean Corpuscular Hemoglobin 33.6 pg (25-34); Mean Corpuscular Volume 101.8 fL (80-100); Mean Platelet Volume 9.6 fL (7.4-10.4); Monocytes # (auto) 0.74 K/uL (0.11-0.59); Monocytes % (auto) 10.6 %; Neutrophils # (auto) 5.34 K/uL (1.4-6.5); Neutrophils % (auto) 76.6 %; Platelet Count 100 K/uL (130-400); RDW Coefficient of Variation 13.7 % (11.5-14.5); RDW Standard Deviation 51.2 fL (36.4-46.3); Red Blood Count 3.84 M/uL (4.7-6.1); White Blood Count 6.98 K/uL (4.8-10.8)
[2021-02-25] MEDS: ATORVASTATIN 20 MG TAB PO SCH (08:05)
[2021-02-25] MEDS: CHOLECALCIFEROL 1,000 UNITS 25 MCG TAB PO SCH (08:05)
[2021-02-25] MEDS: PANTOprazole 40 MG TAB PO SCH (08:05)
[2021-02-25] MEDS: DOCUSATE SODIUM 100 MG CAP PO SCH ×2 (08:06→20:13)
--- NOTE | 2021-02-25 08:14 | Urology Progress Note ---
Date of Service February 25, 2021 Assessment & Plan (1) BPH w urinary obs/LUTS: Plan: - Pt POD#1 s/p TURP with Dr. Dos Santos - Doing well, progressing as expected - Afebrile, lab work reviewed - creatinine 2.07, WBC 6.98, Hgb 12.9 - Creatinine 2.38 (02/24) --> 2.07 today (baseline 0.95 on 02/08/21) - Hospitalist service is holding HCTZ and Losartan, gentle IV fluids - appreciate recs - ANTONIO ordered for further evaluation - reviewed and no hydronephrosis; renal cysts and bladder diverticulum noted - Tolerating PO diet - 3 way Morrison catheter intact, patent and draining clear light pink urine with CBI on slow - CBI clamped @0900, nursing made aware - will reassess later this AM - Reassessed at 1000 - Morrison draining light red urine - Anticipate home with Morrison catheter later today or tomorrow presuming urine appropriate and medically stable - Maintain Morrison catheter for 10 days - Plan to restart Eliquis in 1-2 days if urine remains appropriate - Will discharge with course of PO antibiotics - Expected clinical course reviewed, all questions answered - Case management on board to assist with discharge planning and transportation - Will arrange outpatient follow-up with our service for voiding trial and post op follow-up Admission and Anticipated Discharge Date Admission Date: February 24, 2021 Subjective 89 yo M POD #1 s/p TURP with Dr. Dos Santos. Patient seen and examined at bedside this AM. He is awake, alert and sitting up in bed. No issues overnight. Denies abdominal, flank, or suprapubic pain. Notes occasional right low back pain. Tolerating PO diet, no nausea or vomiting. +Flatus. Morrison catheter intact, patent and draining clear light pink urine with CBI on slow. Per nursing notes, no manual irrigation required overnight. CBI clamped at 0900. No fever or chills. Review of Systems Constitutional: as per Subjective / HPI Gastrointestinal: as per Subjective / HPI Genitourinary: + as per Subjective / HPI Physical Exam Constitutional: well developed and well nourished; no acute distress and not ill appearing Respiratory: normal respiratory effort and able to speak in complete sentences; no respiratory distress and no labored breathing Cardiovascular: Rate/Rhythm: regular rate Gastrointestinal (Abdomen): Inspection/Auscultation: abdomen normal to inspection; abdomen not distended Percussion/Palpation: abdomen soft; abdomen nontender and no guarding Musculoskeletal: Head/Neck/Chest: normocephalic and head atraumatic Neurologic: moves all extremities and awake Psychiatric: Orientation: alert and oriented x 3 Genitourinary: Morrison catheter intact, patent and draining clear light pink urine CBI clamped at time of exam @0900 Results & Data ([facility]) Vital Signs (Past 12 Hours) Vital Signs Temp Pulse Pulse Pulse Resp BP BP 02/25/21 08:00 36.6 C 81 18 130/87 02/25/21 07:37 77 02/25/21 02:00 75 02/24/21 23:00 36.7 C 72 20 161/89 H 02/24/21 20:57 36.6 C 75 18 152/86 H Pulse Ox 02/25/21 08:00 97 02/25/21 07:37 02/25/21 02:00 02/24/21 23:00 97 02/24/21 20:57 95 PG Care Time/CCT Total # of Minutes Spent Total Time Spent with Patient: Total time spent is greater than 50% in coordination of care (as documented) at patient's floor/unit and/or counseling patient: Coding Level of Care Code 73321 Subseq Hosp Care Lvl 2 Diagnoses BPH w urinary obs/LUTS N40.1; N13.8
[2021-02-25] MEDS: POTASSIUM CHLORIDE / WTR 10 MEQ/100 ML PLCT IV SCH ×4 (08:21→11:25)
[2021-02-25 08:25] LABS: Albumin Level 2.7 gm/dl (3.4-5.0); BUN Creatinine Ratio 7.7 (10-20); Bilirubin,Total 0.7 mg/dl (0.2-1); Creatinine Clr Calc Pharmacy 29.2 ml/min; Est GFR (African American) 31.9 ml/min; Est GFR (Non-African American) 27.6 ml/min; Magnesium 1.4 mg/dl (1.8-2.4); Potassium 3.7 mmol/L (3.5-5.1)
[2021-02-25 08:27] LABS: Albumin Globulin Ratio 0.9 (0.9-2); Globulin 3.2 gm/dl (2.5-4.0); Total Protein 5.9 gm/dl (6.4-8.2)
[2021-02-25] MEDS ORDERED: POTASSIUM CHLORIDE CRTAB 20 MEQ TABCR PO SCH (09:00)
[2021-02-25] MEDS ORDERED: hydroCHLOROthiazide 25 MG TAB PO SCH (09:00)
[2021-02-25] MEDS: SODIUM CHLORIDE 0.9% 1000ML 1,000 ML IV SCH ×2 (09:18→19:46)
[2021-02-25] MEDS: POTASSIUM CHLORIDE 20 MEQ/15 ML UDC PO SCH (09:20)
--- NOTE | 2021-02-25 10:00 | Electrocardiogram Report ---
Test Reason : Blood Pressure : / mmHG Vent. Rate : 068 BPM Atrial Rate : 250 BPM P-R Int : 000 ms QRS Dur : 076 ms QT Int : 430 ms P-R-T Axes : 000 063 049 degrees QTc Int : 457 ms Atrial fibrillation Abnormal ECG When compared with ECG of 08-FEB-2021 10:25, No significant change was found Confirmed by Antony Hebert ([id number]) on 02/25/2021 9:59:52 AM Referred By: Faisal Dos Santos Confirmed By:Antony Hebert
--- NOTE | 2021-02-25 10:10 | Ultrasound Report ---
RENAL ULTRASOUND HISTORY: elevated creatinine COMPARISON: Abdomen and pelvis CT 02/19/2019. FINDINGS: Right kidney: 11.7 cm. There is a 1.8 cm upper pole cyst. No hydronephrosis. Normal corticomedullary differentiation and cortical thickness. Left kidney: 11.6 cm. A 3.8 cm upper pole cyst and a 1.1 cm mid pole cyst. No hydronephrosis. Normal corticomedullary differentiation and cortical thickness. Bladder: Bladder is decompressed by Morrison catheter not well visualized. The 2.6 cm cystic focus at th e anterior bladder dome. This could represent a small urachal remnant/diverticulum. IMPRESSION: 1. Bilateral renal cysts. 2. No hydronephrosis. 3. The bladder is decompressed by Morrison catheter. There is a 2.6 cm cystic focus at the anterior blad shelli dome. This could represent a small urachal remnant/diverticula. ACT 112: Negative or not required by law. Electronically signed by: Klaus Brennan M.D. 02/25/2021 10:09 AM
[2021-02-25] MEDS: MAGNESIUM OXIDE 400 MG TAB PO SCH (12:06)
[2021-02-25 14:57] LABS: BUN Creatinine Ratio 7.9 (10-20); Creatinine Clr Calc Pharmacy 28.6 ml/min; Est GFR (African American) 31.2 ml/min; Est GFR (Non-African American) 26.9 ml/min; Potassium 3.9 mmol/L (3.5-5.1)
--- NOTE | 2021-02-25 17:59 | Billing Data ---
Date of Service February 25, 2021 Coding Level of Care Code 33728 Subseq Obs Care Lvl 3
[2021-02-25] MEDS ORDERED: METOPROLOL TARTRATE 1 MG/ML VIAL IV STA (19:28)
--- NOTE | 2021-02-25 19:43 | Billing Data ---
Date of Service February 25, 2021 Coding Level of Care Code 32814 Inpt Consult Level 3
[2021-02-25] MEDS ORDERED: Nursing to Pharmacy Communication SCH (21:30)
[2021-02-26] MEDS: SODIUM CHLORIDE 0.9% 1000ML 1,000 ML IV SCH ×2 (03:42→13:51)
[2021-02-26] MEDS: CHOLECALCIFEROL 1,000 UNITS 25 MCG TAB PO SCH (08:36)
[2021-02-26] MEDS: MAGNESIUM OXIDE 400 MG TAB PO SCH (08:36)
[2021-02-26] MEDS: PANTOprazole 40 MG TAB PO SCH (08:37)
[2021-02-26] MEDS: DOCUSATE SODIUM 100 MG CAP PO SCH (08:37)
--- NOTE | 2021-02-26 08:37 | Urology Progress Note ---
Date of Service February 26, 2021 Assessment & Plan (1) BPH w urinary obs/LUTS: Plan: 89 yo s/p TURP. Remained in hospital due to elevated creatinine (elevated prior to surgery) and transportation. Medicine consulted for elevated creatinine. - Pt POD#2 s/p TURP with Dr. Dos Santos - Doing well, progressing as expected - Afebrile, lab work reviewed - creatinine 2.11 yesterday afternoon - Creatinine 2.38 (02/24) --> 2.11 last night, value pending today (baseline 0.95 on 02/08/21) - Hospitalist service is holding HCTZ and Losartan, gentle IV fluids - appreciate recs - ANTONIO ordered for further evaluation - reviewed and no hydronephrosis; renal cysts and bladder diverticulum noted - Tolerating PO diet - 3 way Wells catheter intact, patent and draining clear light pink urine, off CBI - Anticipate home with Wells catheter later today or tomorrow presuming urine appropriate and medically stable - Maintain Wells catheter for 10 days - Plan to restart Eliquis tomorrow if urine remains clear - Will discharge with course of PO antibiotics - Expected clinical course reviewed, all questions answered - Case management on board to assist with discharge planning and transportation, will reassess with them and medicine today - Will arrange outpatient follow-up with our service for voiding trial and post op follow-up Admission and Anticipated Discharge Date Admission Date: February 24, 2021 Subjective No acute issues overnight. Tolerating diet. Denies any discomfort from wells. Wells draining pink tinged urine. Feels well enough to go home today. Morning creatinine level pending along with assessment by medicine service. Patient reports his nephew will pick him up and he has neighbor that can check on him. Review of Systems Review of Systems: 14 point review of systems negative outside of what is listed above in HPI Physical Exam Physical Exam: General: Alert and oriented, no acute distress HEENT: Normocephalic, mucous membranes moist Cardiovascular: Regular rate Pulmonary: Nonlabored respirations Abdomen: Nondistended : Wells catheter draining pink tinged urine Extremities: Moves all 4 spontaneously Neuro: No gross deficits Skin: Warm, dry, no rashes noted Results & Data ([facility]) Vital Signs (Past 12 Hours) Vital Signs Temp Pulse Pulse Resp BP BP Pulse Ox 02/26/21 07:42 36.7 C 75 18 139/89 98 09/18/21 04:00 36.6 C 72 20 139/84 96 02/26/21 00:24 66 02/25/21 22:59 36.7 C 68 20 160/84 H 97 PG Care Time/CCT Total # of Minutes Spent Total Time Spent with Patient: Total time spent is greater than 50% in coordination of care (as documented) at patient's floor/unit and/or counseling patient: Coding [place] [address] Subseq Hosp Care Lvl 2 Patient Type Established History Expanded Problem Focused Exam Expanded Problem Focused Medical Decision Making Moderate Complexity Diagnoses BPH w urinary obs/LUTS N40.1; N13.8
[2021-02-26] MEDS: POTASSIUM CHLORIDE 20 MEQ/15 ML UDC PO SCH (08:38)
[2021-02-26] MEDS: ATORVASTATIN 20 MG TAB PO SCH (08:38)
[2021-02-26 09:34] LABS: BUN Creatinine Ratio 8.6 (10-20); Calcium 6.6 mg/dl (8.5-10.1); Est GFR (African American) 41.1 ml/min; Est GFR (Non-African American) 35.5 ml/min; Potassium 3.6 mmol/L (3.5-5.1)
--- NOTE | 2021-02-26 11:21 | Hospitalist Progress Note ---
Date of Service February 26, 2021 Assessment & Plan (1) Afib: Plan: Jose is a 89 yo M w/ a known history of atrial fibrillation, HTN, polyneuropathy, hospitalized for BPH w/ LUTZ s/p TURP consulted by Dr. Dos Santos for atrial fibrillation. s/p TURP - Pain control in place, PRN Tylenol and Morphine - Continue remainder of care per Urology Atrial fibrillation, rate controlled, [id number] for age and HTN - Known history of AFib, noted back to 2018 on ECGs here and during this admission - Not on rate control medications - Last Echo in our system from 2018: Normal biventricular function - Eliquis held prior to procedure, continue to hold today and discuss restarting tomorrow. To be restarted per primary urology team. - Recommend goal to maintain K > 4, Mg > 2 DAX -- improving, baseline Cr ~0.95-1.1 - At presentation, BUN/Cr at 17/2.38. Creatinine significantly improved to 1.68 today. - Likely prerenal in setting of dehydration, HCTZ, losartan - Will discontinue mIVF at 85 cc / hr for now. Continue to encourage po hydration/fluid intake (at least 2L/day). - Start Eliquis 5mg b.i.d. in 1-2 days (post-op) per primary team. - Recommend outpatient BMP on Sunday or [facility] after [facility] - Recommend continuing to hold ARB and diuretic until follow up BMP/close monitoring in outpatient setting HTN - Overall, well controlled while here - Continue to hold HCTZ/Losartan in setting of DAX, see above - If BP becomes elevated can consider IV Hydralazine Hypokalemia, Hypomagnesemia -- goal K 4, Mg 2 - Can discontinue supplemental potassium. Encourage adequate po intake. Patient medically stable for discharge from hospitalist service. Please contact us with any further questions or concerns. (2) Hypertension: (3) Polyneuropathy: (4) BPH w urinary obs/LUTS: (5) Hematuria: Admission and Anticipated Discharge Date Admission Date: February 24, 2021 Supervising Physician Co-Signing Physician Notes I personally examined the patient and verified all bagley points of history and exam, discussed case, and agree with decision making with Dr Goel. Chart reviewed, case discussed with resident physician in detail, patient was discharged by urology prior to my seeingbut agree with above/agree with urology management. Holding and ARB for now, repeat basic metabolic panel early next week. Otherwise as above. Subjective Patient seen and evaluated at bedside this morning. No acute events overnight. He states that he overall feels well. Does report some diffuse chronic low back pain, unchanged from baseline. Denies chest pain, shortness of breath, or cough. Post surgical pain reported to be under control. Review of Systems Review of Systems: See HPI Physical Exam Physical Exam: GENERAL: Well appearing 89 yo male sitting at edge of bed in no acute distress. Well developed and well nourished. Vital signs reviewed as above. EYES: EOMI. Anicteric sclerae. HENT: Moist mucous membranes. RESPIRATORY: Clear to auscultation bilaterally. No wheezing, rales, or rhonchi. CARDIOVASCULAR: Regular rate. Irregularly irregular rhythm. No murmurs. ABDOMEN: Soft, non-tender and non-distended. No palpable masses. Normal bowel sounds. EXTREMITIES: No edema. Non-tender. SKIN: Warm, dry. NEUROLOGIC: A/O x3. No focal neurological deficits. 5/5 strength in BUE and BLE. PSYCHIATRIC: Cooperative. Appropriate mood and affect. Results & Data Results & Data ([facility]) Vital Signs (Past 12 Hours) Vital Signs Temp Pulse Pulse Resp BP BP Pulse Ox 02/26/21 11:11 36.9 C 69 18 151/97 H 99 02/26/21 07:42 36.7 C 75 18 139/89 98 02/26/21 04:00 36.6 C 72 20 139/84 96 02/26/21 00:24 66 Laboratory Results 02/26/21 02/25/21 Range/Units 07:35 14:02 Sodium 138 137 (136-145) mmol/L Potassium 3.6 3.9 (3.5-5.1) mmol/L Chloride 108 H 104 (98-107) mmol/L Carbon Dioxide 23 24 (21-32) mmol/L Anion Gap 7.0 9.0 (3-11) BUN 14 17 (7-18) mg/dl Creatinine 1.68 H D 2.11 H (0.6-1.4) mg/dl Est Cr Clr Drug Dosing 36.0 28.6 ml/min Est GFR ( Amer) 41.1 31.2 ml/min Est GFR (Non-Af Amer) 35.5 26.9 ml/min BUN/Creatinine Ratio 8.6 L 7.9 L (10-20) Glucose 130 H 167 H (70-99) mg/dl Calcium 6.6 L 7.0 L (8.5-10.1) mg/dl Resident Activity Tracking Resident Involvement: Resident Care Provided Care Provided: Adult [facility]
--- NOTE | 2021-02-28 11:12 | Discharge Summary ---
Date of Service February 28, 2021 Admission HPI Per Admitting Provider See H&P Admission Exam Per Admitting Provider See H&P Principal Diagnosis BPH with obstruction Discharge Exam General: Alert in no acute distress. HEENT: Normocephalic Atraumatic. Inspection normal. Psychologic: Normal affect. Skin: [place] and Dry. No rashes or visible lesions. Abdomen: Soft Non-distended. No rebound or guarding. Discharge Data Allergies Allergy/AdvReac Type Severity Reaction Status Date / Time lisinopril Allergy Intermediate Lip Verified 02/24/21 09:52 swelling Consultations 02/24/21 10:35 Consult Hospitalist Routine Procedures Performed Operation Date: 02/24/21 11:00 Actual Procedures p Transurethral Resection Prostate(Not Applicable) - Faisal Dos Santos, Ordered Studies 02/25/21 09:30 US renal/blad retro comp Urgent Hospital Course (1) BPH w urinary obs/LUTS: 89 yo s/p TURP. Remained in hospital due to elevated creatinine (elevated prior to surgery) and transportation. Medicine consulted for elevated creatinine. - Pt POD#2 s/p TURP with Dr. Dos Santos - Doing well, progressing as expected - Afebrile, lab work reviewed - creatinine 2.11 yesterday afternoon - Creatinine 2.38 (02/24) --> 2.11 last night, value pending today (baseline 0.95 on 02/08/21) - Hospitalist service is holding HCTZ and Losartan, gentle IV fluids - appreciate recs - ANTONIO ordered for further evaluation - reviewed and no hydronephrosis; renal cysts and bladder diverticulum noted - Tolerating PO diet - 3 way Morrison catheter intact, patent and draining clear light pink urine, off CBI - Anticipate home with Morrison catheter later today or tomorrow presuming urine appropriate and medically stable - Maintain Morrison catheter for 10 days - Plan to restart Eliquis tomorrow if urine remains clear - Will discharge with course of PO antibiotics - Expected clinical course reviewed, all questions answered - Case management on board to assist with discharge planning and transportation, will reassess with them and medicine today - Will arrange outpatient follow-up with our service for voiding trial and post op follow-up Total Time Total Time Spent Total Time Spent (In Minutes): 10 minutes Total Time Includes: Examination of the Patient, Discharge Planning, Medication Reconciliation and Communication With Other Providers Discharge Plan Discharge Items Patient Disposition: Home - Self-Care Reason For Visit: BPH WITH OBSTRUCTION Discharge Diagnosis: BPH with obstruction Activity: Per Instructions section Lifting: No more than 25 pounds Bathing Comment: Okay to shower after discharge, no tub bath or soaking Sexual Activity: Wait until after follow-up appointment Exercise/Sports: Wait until after follow-up appointment Driving/Machine Use: No driving while taking prescription pain medication Non-emergency contact: Urologist Call non-emergency contact if: you have any medication questions, your symptoms worsen, your pain is not controlled, you have a fever and your temperature is above 101 Follow-up/Referrals: PCP,NO [Primary Care Provider] - Diet: Regular Addtl Attending Provider Instructions: Please take all medications as prescribed and keep all follow-ups as scheduled. Please call our office at [phone] with any questions, concerns or need to reschedule appointments for any reason. We are happy to assist you. Restart Eliquis tomorrow (Sunday, 02/27) if your urine remains pink to light red. Call office if you any questions. Have your primary care doctor check a BMP (blood test to evaluate your kidney function) on Sunday (02/28) or Sunday (03/01). Continue to hold your hydrochlorothiazide and losartan until your primary care doctor checks your kidney function and tells you to restart. Tips for your recovery at home: Dont be alarmed by brownish or reddish blood or clots in your urine. This is a result of the procedure. This may occur off and on for weeks to months after the procedure but should continue to improve. Drink plenty of fluids during the day (enough to keep your urine very light colored). This will help keep a healthy flow of urine. Do not lift >25 lbs until your followup Avoid constipation. Please use a stool softener (Colace) for the first two weeks after your procedure Be sure to finish the antibiotics as prescribed. If you go home with a catheter, please wash tubing where it enters your body twice daily with mild soap (Dove or Dial). Once your catheter is removed, expect some blood in your urine and some burning when you urinate. You should have an appointment to have this removed, if you do not please call our office to arrange. Pending Studies at Discharge: Yes (pathology) Stand-Alone Forms: My [facility], Smoking Cessation Medications and DC Order Prescriptions: New cephalexin 500 mg capsule 500 mg PO BID 7 Days Qty: 14 RF: 0 Continued acetaminophen [Tylenol] 325 mg Tablet 500 mg PO Q4 PRN (Reason: Pain) RF: 0 atorvastatin [Lipitor] 20 mg tablet 20 mg PO DAILY RF: 0 potassium chloride [Klor-Con M20] 20 mEq tablet,ER particles/crystals 40 meq PO DAILY RF: 0 trospium 20 mg tablet 20 mg PO BID RF: 0 Cardura XL 4 mg tablet extended release 24hr 4 mg PO DAILY RF: 0 apixaban 5 mg Tablet 5 mg PO BID RF: 0 zinc 50 mg Tablet 30 mg PO DAILY RF: 0 cholecalciferol (vitamin D3) [Vitamin D3] 125 mcg (5,000 unit) Tablet 125 mcg PO DAILY RF: 0 tolterodine 1 mg Tablet 1 mg PO DAILY RF: 0 pantoprazole 40 mg Tablet,Delayed Release (Dr/Ec) 40 mg PO DAILY RF: 0 Discontinued losartan [Cozaar] 50 mg tablet 50 mg PO DAILY RF: 0 hydrochlorothiazide 25 mg Tablet 12.5 mg PO DAILY RF: 0 Discharge Orders: Discharge Order (Routine); Ordered 02/26/21 Ordered By: Jacinto Cardenas Admission Data Admit Date/Time: 02/24/21 10:35 Attending Provider: Faisal Dos Santos Admit Provider: Lawrence Turk Primary Care Provider: PCP,NO Other Providers: Armani Braun ; Vani Taylor ; Lawrence Chavez ; Herman Garcia ; Kedar Covarrubias ; Vipul Cano ; Leonardo Thacker ; Markus Miranda ; Jimena Wlal ; Rosalee Hassan ; Min Leroy ; Renetta Cash ; Jeanie Powers ; Luis Antonio Leon ; Jimenez Perez ; Aftab Valle ; Vani Souza ; Surendra Cabrera ; Anne Carballo ; Imtiaz Bernstein ; Lawrence Turk ; Brandon Haywood ; Sowmya Simpson ; Jose Mendoza ; Renetta Johnson ; Cliff Mckee ; Selvin Morin ; Zaynab Galeano ; [facility] Other Interventions: Discharge Summary Assessment (RN) Last Done: 02/26/21 12:12 Coding Level of Care Code D/C DAY MANAGEMENT <30 MINS Diagnoses BPH w urinary obs/LUTS N40.1; N13.8
== END 2021-02-26 15:06 | disposition home or self-care (01) ==
LOC: ASU 09:15 → 2N 09:15

== ENCOUNTER 2021-04-05 16:39 | Inpatient (IN) ==
--- NOTE | 2021-04-05 17:04 | Emergency Department Note ---
Impression & Plan Cervical spine fracture, Contusion of face ED Provider Note NAME: JOSE G ROBERSON AGE: 89 SEX: M : 1930 ARRIVES VIA: Ambulance INFORMANT: Patient ED PROVIDER(S): Vipul Polanco DO CHIEF COMPLAINT: Fall HPI: Patient is an 89-year-old male who was sitting in his chair he went to get up. He pushed off of the chair and he lost his balance and fell. He is c omplaining of mild headache. He admits to taking a blood thinner. He also complains of upper midline cervical pain as well as left shoulder pain. Left shoulder pain is worse with movement. It improved significantly with rest. He notes this occurred 3 days ago. He denies any chest pain or shortness of breath. He is not dizzy or lightheaded. He denies any focal weakness or numbness in his arms or legs. No other exacerbating or remitting factors. He has fallen recently and was evaluated for that. ROS: See above HPI for pertinent positives & negatives. A total of 10 systems reviewed and were otherwise negative. PAST MEDICAL HISTORY:See Below PAST SURGICAL HISTORY:See Below FAMILY HISTORY:See Below SOCIAL HISTORY:See Below HOME MEDICATIONS:See Below ALLERGIES:See Below VITALS:See Below PHYSICAL EXAMINATION: GENERAL: alert, well appearing, well nourished, no distress, non-toxic HEAD: normal cephalic, abrasion and bruising over the left forehead with bruising around the left orbit EYE EXAM: normal conjunctiva, PERRL and EOM's grossly intact OROPHARYNX: no exudate, no erythema, lips, buccal mucosa, and tongue normal and mucous membranes are moist NECK: supple, no nuchal rigidity, no adenopathy, non-tender CHEST: stable to compression anteriorly and posteriorly LUNGS: clear to auscultation. Normal chest wall mechanics HEART: no murmurs, S1 normal and S2 normal ABDOMEN: abdomen soft, non-tender, normo-active bowel sounds, no masses, no rebound or guarding. PELVIS: stable to compression anteriorly and posteriorly BACK: Back is symmetrical on inspection and there is no deformity, no midline tenderness, no CVA tenderness. UPPER EXTREMITIES: No tenderness throughout the entire right upper extremity. Minimal tenderness on palpation of left humerus with range of motion. No tenderness throughout remainder of humerus, elbow, forearm wrist or fingers. Radial pulses are 2 out of 4. LOWER EXTREMITIES: full active and passive range of motion of all joints without tenderness to palpation NEURO EXAM: Normal sensorium, cranial nerves II-XII grossly intact, normal speec h, no gross weakness of arms, no gross weakness of legs. GCS: 15. MEDICAL DECISION MAKING: Patient is an 89-year-old male who presents the ER for fall. IV was established blood was obtained. Labs show no significant leukocytosis or anemia. BMP along with LFTs bilirubin showed a T bili of 1.8. Lipase was normal. UA was unremarkable. CT head face and cervical spine show C4 and C5 fractures. X-rays of thoracic spine showed no acute fractures. CTA was performed following CT Noncon which showed no disruption of the vertebral arteries. Case discussed with Dr. Hodgson. Patient was having a fair amount of pain. Given multiple doses of morphine. Placed in [facility]. Admitted to hospital for further work- up. Triage Nursing notes reviewed. Limited review of prior medical records performed Vital Signs: reviewed and remarkable for HTN Differential diagnosis: Differential diagnoses include major intracranial, cervical, spinal, thoracic, abdominal, pelvic and neurologic injury. Fracture, contusion, sprain, strain, laceration, abrasions included as well. ER treatment provided: See below Diagnostics interpreted by me: ECG: none Cardiac Monitoring: An order was placed for continuous cardiac monitoring. The monitor shows a rate of 82 with sinus rhythm. Laboratory studies: As stated above and show below. Imaging studies: CT head, face, cervical spine shows C4 and C5 fractures. CT angio was negative. Consultation(s): Discussed with Dr. Hodgson who agrees with [facility] and he will evaluate tomorrow. Discussed with hospitalist for further evaluation Procedures: none Critical Care: None Past Med/Surg History Medical History Afib on Eliquis, monitored by PCP Arthritis GERD (gastroesophageal reflux disease) Hearing deficit HTN (hypertension) Hx of gallstones Hyperlipidemia Poor historian Urinary frequency Surgical History History of colonoscopy History of cystoscopy History of herniorrhaphy History of tooth extraction History of total knee replacement R/L Family History Other No family history of adverse response to anesthesia No pertinent family history Social History Smoking Status: Never smoker Second Hand Exposure: No; Hx Alcohol Use: Yes Alcohol type: beer Hx Substance Use: No Preferred Language: Turkmen Communication Ability: Effective [employer] Required: No Beliefs That Will Affect Care: None Current Living Situation: Alone How many Children do You have: 6 Feels Safe at Home: Yes Assistive Devices: Cane and Walker Allergies Allergies Allergy/AdvReac Type Severity Reaction Status Date / Time lisinopril Allergy Intermediate Lip Verified 04/05/21 17:07 swelling Home Meds Home Medications Medication Instructions Recorded Confirmed apixaban 5 mg tablet 5 mg PO BID 04/17/18 04/05/21 atorvastatin 20 mg tablet (Lipitor) 20 mg PO DAILY 04/17/18 04/05/21 potassium chloride 20 mEq 40 meq PO DAILY 04/17/18 04/05/21 tablet,extended release(part/cryst) (Klor-Con M) trospium 20 mg tablet 20 mg PO BID 04/17/18 04/05/21 cholecalciferol (vitamin D3) 125 125 mcg PO DAILY 02/07/21 04/05/21 mcg (5,000 unit) tablet (Vitamin D3) pantoprazole 40 mg tablet,delayed 40 mg PO DAILY 02/07/21 04/05/21 release doxazosin 4 mg tablet 4 mg PO DAILY 03/11/21 04/05/21 losartan 50 mg tablet 50 mg PO DAILY 03/11/21 04/05/21 Results & Data (ED) Vital Signs Vital Signs - 24 hr 04/05/21 16:30 04/05/21 16:59 04/05/21 17:48 Temperature 37.3 C Temperature Source Oral Pulse Rate 80 92 H 104 H Pulse Rate [Apical] Pulse Rhythm [Apical] Respiratory Rate 18 20 16 Respiratory Effort / Characteristics Respiratory Depth Blood Pressure 165/94 H Blood Pressure [Right Arm] Blood Pressure Mean 117 Blood Pressure Mean [Right Arm] Pulse Oximetry 98 96 Oxygen Delivery Method Room Air Sepsis Recent Fever Within 48 Hours No Sepsis New/Unexplained Change in Mental Status No Sepsis Action Taken by Nursing No Action Required 04/05/21 18:00 04/05/21 18:30 04/05/21 19:00 Temperature Temperature Source Pulse Rate 78 91 H 88 Pulse Rate [Apical] 92 H Pulse Rhythm [Apical] Regular Respiratory Rate 19 18 18 Respiratory Effort / Characteristics Non-Labored Spontaneous Respiratory Depth Normal Blood Pressure 149/93 H Blood Pressure [Right Arm] 122/97 Blood Pressure Mean 111 Blood Pressure Mean [Right Arm] 105 Pulse Oximetry 98 96 Oxygen Delivery Method Room Air Sepsis Recent Fever Within 48 Hours Sepsis New/Unexplained Change in Mental Status Sepsis Action Taken by Nursing 04/05/21 19:57 04/05/21 20:00 04/05/21 20:30 Temperature Temperature Source Pulse Rate 79 85 86 Pulse Rate [Apical] Pulse Rhythm [Apical] Respiratory Rate 14 24 23 Respiratory Effort / Characteristics Respiratory Depth Blood Pressure 174/99 H Blood Pressure [Right Arm] Blood Pressure Mean 124 Blood Pressure Mean [Right Arm] Pulse Oximetry Oxygen Delivery Method Sepsis Recent Fever Within 48 Hours Sepsis New/Unexplained Change in Mental Status Sepsis Action Taken by Nursing 04/05/21 21:00 Temperature Temperature Source Pulse Rate 85 Pulse Rate [Apical] Pulse Rhythm [Apical] Respiratory Rate 17 Respiratory Effort / Characteristics Respiratory Depth Blood Pressure 140/80 Blood Pressure [Right Arm] Blood Pressure Mean 100 Blood Pressure Mean [Right Arm] Pulse Oximetry Oxygen Delivery Method Sepsis Recent Fever Within 48 Hours Sepsis New/Unexplained Change in Mental Status Sepsis Action Taken by Nursing Laboratory Data Result diagrams: 04/05/21 17:30 04/05/21 17:30 Lab Results 04/05/21 04/05/21 04/05/21 Range/Units 17:30 17:30 17:30 WBC 10.28 (4.8-10.8) K/uL RBC 4.01 L (4.7-6.1) M/uL Hgb 13.2 L (14.0-18.0) g/dL Hct 39.0 L (42-52) % MCV 97.3 (80-100) fL MCH 32.9 (25-34) pg MCHC 33.8 (32-36) g/dL RDW Std Deviation 46.5 H (36.4-46.3) fL RDW Coeff of Kofi 13.0 (11.5-14.5) % Plt Count 128 L (130-400) K/uL MPV 10.2 (7.4-10.4) fL Immature Gran % (Auto) 0.4 % Neut % (Auto) 87.9 % Lymph % (Auto) 7.9 % Geary % (Auto) 3.5 % Eos % (Auto) 0.1 % Baso % (Auto) 0.2 % Neut # (Auto) 9.04 H (1.4-6.5) K/uL Lymph # (Auto) 0.81 L (1.2-3.4) K/uL Geary # (Auto) 0.36 (0.11-0.59) K/uL Eos # (Auto) 0.01 (0-0.5) K/uL Baso # (Auto) 0.02 (0-0.2) K/uL Immature Gran # (Auto) 0.04 H (0.00-0.02) K/uL PT 16.1 H (9.0-12.0) Seconds INR 1.6 H (0.9-1.1) Sodium 137 (136-145) mmol/L Potassium 3.7 (3.5-5.1) mmol/L Chloride 102 (98-107) mmol/L Carbon Dioxide 28 (21-32) mmol/L Anion Gap 7.0 (3-11) BUN 14 (7-18) mg/dl Creatinine 0.95 (0.6-1.4) mg/dl Est Cr Clr Drug Dosing 66.3 ml/min Est GFR ( Amer) 81.9 ml/min Est GFR (Non-Af Amer) 70.7 ml/min BUN/Creatinine Ratio 14.8 (10-20) Glucose 155 H (70-99) mg/dl Calcium 8.7 (8.5-10.1) mg/dl Total Bilirubin 1.8 H (0.2-1) mg/dl AST 19 (15-37) U/L ALT 17 (12-78) U/L Alkaline Phosphatase 83 (45-117) U/L Total Protein 7.1 (6.4-8.2) gm/dl Albumin 2.9 L (3.4-5.0) gm/dl Globulin 4.2 H (2.5-4.0) gm/dl Albumin/Globulin Ratio 0.7 L (0.9-2) Lipase 79 (73-393) U/L Urine Color Urine Appearance (Clear) Urine pH (4.5-7.5) Ur Specific [place] (1.000-1.030) Urine Protein (Negative) Urine Glucose (UA) (Negative) Urine Ketones (Negative) Urine Blood (Negative) Urine Nitrite (Negative) Urine Bilirubin (Negative) Urine Urobilinogen (Negative) Ur Leukocyte Esterase (Negative) Urine WBC (Auto) (0-5) /hpf Urine RBC (Auto) (0-4) /hpf U Hyaline Cast (Auto) (0-5) /lpf U Epithel Cells (Auto) (0-5) /lpf Urine Bacteria (Auto) (Negative) COVID-19 Eval Order SARS-CoV-2 (PCR) (Negative) 04/05/21 04/05/21 04/05/21 Range/Units 21:00 21:00 Unknown WBC (4.8-10.8) K/uL RBC (4.7-6.1) M/uL Hgb (14.0-18.0) g/dL Hct (42-52) % MCV (80-100) fL MCH (25-34) pg MCHC (32-36) g/dL RDW Std Deviation (36.4-46.3) fL RDW Coeff of Kofi (11.5-14.5) % Plt Count (130-400) K/uL MPV (7.4-10.4) fL Immature Gran % (Auto) % Neut % (Auto) % Lymph % (Auto) % Geary % (Auto) % Eos % (Auto) % Baso % (Auto) % Neut # (Auto) (1.4-6.5) K/uL Lymph # (Auto) (1.2-3.4) K/uL Geary # (Auto) (0.11-0.59) K/uL Eos # (Auto) (0-0.5) K/uL Baso # (Auto) (0-0.2) K/uL Immature Gran # (Auto) (0.00-0.02) K/uL PT (9.0-12.0) Seconds INR (0.9-1.1) Sodium (136-145) mmol/L Potassium (3.5-5.1) mmol/L Chloride (98-107) mmol/L Carbon Dioxide (21-32) mmol/L Anion Gap (3-11) BUN (7-18) mg/dl Creatinine (0.6-1.4) mg/dl Est Cr Clr Drug Dosing ml/min Est GFR ( Amer) ml/min Est GFR (Non-Af Amer) ml/min BUN/Creatinine Ratio (10-20) Glucose (70-99) mg/dl Calcium (8.5-10.1) mg/dl Total Bilirubin (0.2-1) mg/dl AST (15-37) U/L ALT (12-78) U/L Alkaline Phosphatase (45-117) U/L Total Protein (6.4-8.2) gm/dl Albumin (3.4-5.0) gm/dl Globulin (2.5-4.0) gm/dl Albumin/Globulin Ratio (0.9-2) Lipase (73-393) U/L Urine Color Dark Yellow Urine Appearance Cloudy A (Clear) Urine pH 5.5 (4.5-7.5) Ur Specific [place] 1.043 H (1.000-1.030) Urine Protein 2+ H (Negative) Urine Glucose (UA) Negative (Negative) Urine Ketones 1+ H (Negative) Urine Blood 3+ H (Negative) Urine Nitrite Negative (Negative) Urine Bilirubin Negative (Negative) Urine Urobilinogen Negative (Negative) Ur Leukocyte Esterase 2+ H (Negative) Urine WBC (Auto) >30 H (0-5) /hpf Urine RBC (Auto) >30 H (0-4) /hpf U Hyaline Cast (Auto) 1-5 (0-5) /lpf U Epithel Cells (Auto) 10-20 H (0-5) /lpf Urine Bacteria (Auto) Negative (Negative) COVID-19 Eval Order Covid19 at [facility] SARS-CoV-2 (PCR) NEGATIVE (Negative) Administered Medications Discontinued Medications Ioversol (Optiray 320 125ml) 118 ml IV ONCE ONE Stop: 04/05/21 19:37 Last Admin: 04/05/21 19:40 Dose: 118 ml Documented by: [id number] Morphine Sulfate (Morphine Sulfate 4 Mg/Ml 1 Ml Carp\Vial) 3 mg IV NOW STA Stop: 04/05/21 17:51 Last Admin: 04/05/21 17:54 Dose: 3 mg Documented by: [id number] Morphine Sulfate (Morphine Sulfate 4 Mg/Ml 1 Ml Carp\Vial) 4 mg IV NOW STA Stop: 04/05/21 19:53 Last Admin: 04/05/21 20:01 Dose: 4 mg Documented by: [id number] Imaging Data Radiologist's Impression: Cervical Spine CT 04/05/21 16:59 CT cervical spine wo con CLINICAL HISTORY: 89 years-old Male with fall neck pain. Acute neck and facial trauma status post fall COMPARISON: CT head of same day, CT cervical spine 07/15/2017 TECHNIQUE: Multiple axial CT images of the cervical spine were obtained without contrast. A dose lowering technique was utilized adhering to the principles of ALARA. FINDINGS: Grade 1 sunrise anterolisthesis is noted at several levels within the mid to lower cervical spine with mild progression from comparison, likely secondary to chronic multilevel facet arthrosis. There is severe multilevel facet arthrosis. Degenerative partial bony fusion of the C2-C4 facets. There is a comminuted fractures involving the C5 spinous process with extension into the bilateral lamina. Mild fracture displacement measures up to approximately 4 mm. Acute mildly displaced fracture of the left C4 transverse process extends into the vertebral foramen on image 367 series 5. Stranding within the bilateral carotid space is and supraclavicular tissues. Multilevel neural foraminal narrowing. No pneumothorax. Multinodular thyroid. Prominent anterior endplate osteophytosis causes mass effect on the airway. Mild to moderate prevertebral edema extends from C3-C5. IMPRESSION: 1. Acute comminuted and mildly displaced fracture of the C5 spinous process with fracture extension into the bilateral lamina. 2. Acute mildly displaced fracture of the left C4 transverse process with fracture extension into the vertebral foramen. These findings could be correlated with CTA of the neck to exclude vascular injury. 3. Prevertebral edema is noted at C3-C5 and extends into the carotid spaces and supraclavicular distributions. This is also presumably on a posttraumatic basis. 4. Multilevel degenerative changes as above. ACT 112: Negative or not required by law. The above report was generated using voice recognition software. It may contain grammatical, syntax or spelling errors. Electronically signed by: Yong Olsen M.D. 04/05/2021 6:39 PM Chest X-Ray 04/05/21 16:59 XR chest 1V portable HISTORY: 89 years-old Male fall acute chest and left shoulder pain status post fall COMPARISON: Left shoulder radiographs of same day, chest radiograph 02/08/2021 TECHNIQUE: AP view of the chest FINDINGS: Cardiac silhouette is mildly enlarged. No pneumothorax, large pleural effusion, airspace consolidation or overt pulmonary edema. Degenerative changes of the shoulders and spine. IMPRESSION: No acute process. ACT 112: Negative or not required by law. The above report was generated using voice recognition software. It may contain grammatical, syntax or spelling errors. Electronically signed by: Yong Olsen M.D. 04/05/2021 5:[address] 04/05/21 16:59 CT facial bones wo con CLINICAL HISTORY: 89 years-old Male presenting with fall hit head. Acute head and neck injury status post fall COMPARISON STUDY: CT abdomen and cervical spine studies of same day TECHNIQUE: High-resolution CT scan of the facial bones is performed. Images are reviewed in the axial, sagittal, and coronal planes. IV contrast was not administered for this examination. A dose lowering technique was utilized adhering to the principles of ALARA. CT DOSE: 1100.26 mGy.cm FINDINGS: The bilateral globes and orbits are unremarkable. Streak artifact from hardware within the oral cavity. Prevertebral edema with edema within the carotid spaces and supraclavicular distributions. Acute cervical spine fractures. Mild mucosal thickening of the paranasal sinuses. No acute facial bone fracture. IMPRESSION: 1. No acute facial bone fracture. 2. Acute cervical spine fractures with associated prevertebral edema are better characterized on the CT cervical spine study of same day. ACT 112: Negative or not required by law. The above report was generated using voice recognition software. It may contain grammatical, syntax or spelling errors. Electronically signed by: Yong Olsen M.D. 04/05/2021 6:[address] 04/05/21 16:59 CT head/brain wo con CLINICAL HISTORY: 89 years-old Male with fall. Acute head injury status post fall TECHNIQUE: Multiple axial CT images of the head were obtained without contrast. A dose lowering technique was utilized adhering to the principles of ALARA. COMPARISON: Head CT 07/15/2017 FINDINGS: No acute intracranial hemorrhage, midline shift, intracranial mass, hydrocephalus, territorial ischemia or abnormal extra-axial collection. Age- related involutional changes. Patchy white matter hypodensities suggestive of chronic microvascular ischemic disease. Senescent calcifications of the lentiform nuclei. Cerebral vascular calcifications. The calvarium is intact. [Mastoid air cells are clear. Minimal mucosal thickening of the maxillary and ethmoid sinuses. Unremarkable soft tissues and orbits. IMPRESSION: No acute intracranial abnormality or calvarial fracture. ACT 112: Negative or not required by law. The above report was generated using voice recognition software. It may contain grammatical, syntax or spelling errors. Electronically signed by: Yong Olsen M.D. 04/05/2021 6:25 PM Shoulder X-Ray 04/05/21 16:59 XR shoulder LT min 2V routine HISTORY: 89 years-old Male l shoulder pain . Acute left shoulder pain status post fall COMPARISON: Chest radiograph of same day TECHNIQUE: 3 views of the left shoulder FINDINGS: Mild glenohumeral with minimal AC joint osteoarthritis. No acute fracture, dislocation or opaque foreign body. The imaged lung lacey appear clear. IMPRESSION: No acute fracture or dislocation. ACT 112: Negative or not required by law. The above report was generated using voice recognition software. It may contain grammatical, syntax or spelling errors. Electronically signed by: Yong Olsen M.D. 04/05/2021 5:48 PM Neck CTA 04/05/21 19:00 CT angio neck with con CLINICAL HISTORY: 89 years-old Male with Cervical spine fractures. Acute neck pain with cervical spine fractures COMPARISON STUDY: CT cervical spine of same day TECHNIQUE: Following the IV administration of 118 mL of Optiray, CT angiogram of the neck was performed from the aortic arch to the skull base. Images are reviewed in the axial, sagittal, and coronal planes. 3-D MIPS images are created and assessed. IV contrast was administered without complication. All measurements were calculated based on NASCET criteria. A dose lowering technique was utilized adhering to the principles of ALARA. CT DOSE: 571.05 mGy.cm FINDINGS: Three-vessel morphology of the thoracic aortic arch. Patency of the innominate and imaged subclavian arteries. Mild atherosclerosis of the common carotid arteries, right greater than left carotid bulbs and internal carotid arteries without high-grade stenosis. Multifocal mild and minimal narrowing and irregularity involves the distal cervical segments of the bilateral internal carotid arteries which is also likely secondary to atherosclerotic vascular disease. A 3 mm saccular aneurysm is incidentally noted involving the right anterior communicating artery on image 370 of series 2. The vertebral arteries are codominant and widely patent. No aneurysm, dissection, high-grade stenosis or arterial occlusion identified. Atherosclerotic plaque at the origin of the vertebral arteries results in mild stenosis bilaterally. Comminuted fractures involving the C5 spinous process with extension into the bilateral lamina. Mild fracture displacement measures up to approximately 4 mm. Acute mildly displaced fracture of the left C4 transverse process extends into the vertebral foramen on image 367 series 5. Moderate prevertebral edema with stranding extending into the bilateral carotid spaces and supraclavicular tissues redemonstrated. Multinodular thyroid. IMPRESSION: 1. Acute mildly displaced fracture of the left C4 transverse process with f racture extension into the vertebral foramen redemonstrated. There is no evidence of acute vascular injury of the left vertebral artery. 2. Multifocal atherosclerotic plaque without high-grade stenosis or arterial occlusion. 3. 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 4. Acute comminuted mildly displaced fracture of the C5 spinous process with extension into the lamina redemonstrated. 5. Unchanged prevertebral edema. ACT 112: Negative or not required by law. The above report was generated using voice recognition software. It may contain grammatical, syntax or spelling errors. Electronically signed by: Yong Olsen M.D. 04/05/2021 8:13 PM Thoracic Spine X-Ray 04/05/21 19:01 XR thoracic spine 3V routine HISTORY: 89 years-old Male upper back pain acute upper back pain COMPARISON: CT cervical spine of same day, CT thoracic spine 09/01/2020 TECHNIQUE: 3 views of the thoracic spine FINDINGS: Study is limited secondary to positioning. The subacute to chronic fracture of the T6 segment is better seen on comparison CT. Moderate multilevel intervertebral disc space narrowing with bridging osteophytosis and mild facet arthrosis redemonstrated. No definite acute fracture or subluxation identified. Cardiomegaly. IMPRESSION: No acute fracture or subluxation identified. ACT 112: Negative or not required by law. The above report was generated using voice recognition software. It may contain grammatical, syntax or spelling errors. Electronically signed by: Yong Olsen M.D. 04/05/2021 8:05 PM Discharge Plan Visit Data Chief Complaint: Fall ED Provider: Vipul Polanco Discharge Problem: Cervical spine fracture, Contusion of face Patient Disposition: Admitted As Inpatient Discharge Instructions Interventions: ED Discharge Assessment Last Done: 04/05/21 22:53 Forms Stand Alone Forms: My [facility] Prescriptions Prescriptions: No Action atorvastatin [Lipitor] 20 mg tablet 20 mg PO DAILY RF: 0 potassium chloride [Klor-Con M20] 20 mEq tablet,ER particles/crystals 40 meq PO DAILY RF: 0 trospium 20 mg tablet 20 mg PO BID RF: 0 apixaban 5 mg Tablet 5 mg PO BID RF: 0 cholecalciferol (vitamin D3) [Vitamin D3] 125 mcg (5,000 unit) Tablet 125 mcg PO DAILY RF: 0 pantoprazole 40 mg Tablet,Delayed Release (Dr/Ec) 40 mg PO DAILY RF: 0 losartan 50 mg tablet 50 mg PO DAILY RF: 0 doxazosin 4 mg tablet 4 mg PO DAILY RF: 0 Referrals Referrals: PCP,NO [Primary Care Provider] - Discharge Problem: Cervical spine fracture Qualifiers: Encounter type: initial encounter Cervical vertebra fracture level: unspecified cervical vertebra Fracture type: closed Qualified Code(s): S12.9XXA - Fracture of neck, unspecified, initial encounter Contusion of face Qualifiers: Encounter type: initial encounter Qualified Code(s): S00.83XA - Contusion of other part of head, initial encounter
[2021-04-05 17:41] LABS: Basophils # (auto) 0.02 K/uL (0-0.2); Basophils % (auto) 0.2 %; Eosinophils # (auto) 0.01 K/uL (0-0.5); Eosinophils % (auto) 0.1 %; Hemoglobin 13.2 g/dL (14.0-18.0); Immature Granulocytes # (auto) 0.04 K/uL (0.00-0.02); Immature Granulocytes % (auto) 0.4 %; Lymphocytes # (auto) 0.81 K/uL (1.2-3.4); Lymphocytes % (auto) 7.9 %; Mean Corpuscular Hemoglobin 32.9 pg (25-34); Mean Corpuscular Hgb Conc 33.8 g/dL (32-36); Mean Corpuscular Volume 97.3 fL (80-100); Mean Platelet Volume 10.2 fL (7.4-10.4); Monocytes # (auto) 0.36 K/uL (0.11-0.59); Monocytes % (auto) 3.5 %; Neutrophils # (auto) 9.04 K/uL (1.4-6.5); Neutrophils % (auto) 87.9 %; Platelet Count 128 K/uL (130-400); RDW Standard Deviation 46.5 fL (36.4-46.3); Red Blood Count 4.01 M/uL (4.7-6.1); White Blood Count 10.28 K/uL (4.8-10.8)
[2021-04-05] MEDS ORDERED: MoRPHine SULFATE 4 MG/ML 1 ML CARP\\VIAL IV STA ×2 (17:50→19:52)
--- NOTE | 2021-04-05 17:50 | XRay Report ---
XR shoulder LT min 2V routine HISTORY: 89 years-old Male l shoulder pain . Acute left shoulder pain status post fall COMPARISON: Chest radiograph of same day TECHNIQUE: 3 views of the left shoulder FINDINGS: Mild glenohumeral with minimal AC joint osteoarthritis. No acute fracture, dislocation or opaque fore ign body. The imaged lung lacey appear clear. IMPRESSION: No acute fracture or dislocation. ACT 112: Negative or not required by law. The above report was generated using voice recognition software. It may contain grammatical, syntax o r spelling errors. Electronically signed by: Yong Olsen M.D. 04/05/2021 5:48 PM
--- NOTE | 2021-04-05 17:51 | XRay Report ---
XR chest 1V portable HISTORY: 89 years-old Male fall acute chest and left shoulder pain status post fall COMPARISON: Left shoulder radiographs of same day, chest radiograph 02/08/2021 TECHNIQUE: AP view of the chest FINDINGS: Cardiac silhouette is mildly enlarged. No pneumothorax, large pleural effusion, airspace consolidatio n or overt pulmonary edema. Degenerative changes of the shoulders and spine. IMPRESSION: No acute process. ACT 112: Negative or not required by law. The above report was generated using voice recognition software. It may contain grammatical, syntax o r spelling errors. Electronically signed by: Yong Olsen M.D. 04/05/2021 5:50 PM
[2021-04-05 17:53] LABS: INR 1.6 (0.9-1.1); Prothrombin Time 16.1 Seconds (9.0-12.0)
[2021-04-05 18:08] LABS: Albumin Level 2.9 gm/dl (3.4-5.0); BUN Creatinine Ratio 14.8 (10-20); Calcium 8.7 mg/dl (8.5-10.1); Creatinine Clr Calc Pharmacy 66.3 ml/min; Est GFR (African American) 81.9 ml/min; Est GFR (Non-African American) 70.7 ml/min; Potassium 3.7 mmol/L (3.5-5.1)
[2021-04-05 18:10] LABS: Albumin Globulin Ratio 0.7 (0.9-2); Bilirubin,Total 1.8 mg/dl (0.2-1); Globulin 4.2 gm/dl (2.5-4.0); Total Protein 7.1 gm/dl (6.4-8.2)
--- NOTE | 2021-04-05 18:27 | CT Scan Report ---
CT head/brain wo con CLINICAL HISTORY: 89 years-old Male with fall. Acute head injury status post fall TECHNIQUE: Multiple axial CT images of the head were obtained without contrast. A dose lowering tech nique was utilized adhering to the principles of ALARA. COMPARISON: Head CT 07/15/2017 FINDINGS: No acute intracranial hemorrhage, midline shift, intracranial mass, hydrocephalus, territorial ischem ia or abnormal extra-axial collection. Age-related involutional changes. Patchy white matter hypodens ities suggestive of chronic microvascular ischemic disease. Senescent calcifications of the lentiform nuclei. Cerebral vascular calcifications. The calvarium is intact. [Mastoid air cells are clear. Minimal mucosal thickening of the maxillary a nd ethmoid sinuses. Unremarkable soft tissues and orbits. IMPRESSION: No acute intracranial abnormality or calvarial fracture. ACT 112: Negative or not required by law. The above report was generated using voice recognition software. It may contain grammatical, syntax o r spelling errors. Electronically signed by: Yong Olsen M.D. 04/05/2021 6:25 PM
--- NOTE | 2021-04-05 18:41 | CT Scan Report ---
CT cervical spine wo con CLINICAL HISTORY: 89 years-old Male with fall neck pain. Acute neck and facial trauma status post fa ll COMPARISON: CT head of same day, CT cervical spine 07/15/2017 TECHNIQUE: Multiple axial CT images of the cervical spine were obtained without contrast. A dose low ering technique was utilized adhering to the principles of ALARA. FINDINGS: Grade 1 sunrise anterolisthesis is noted at several levels within the mid to lower cervical spine wit h mild progression from comparison, likely secondary to chronic multilevel facet arthrosis. There is severe multilevel facet arthrosis. Degenerative partial bony fusion of the C2-C4 facets. There is a c omminuted fractures involving the C5 spinous process with extension into the bilateral lamina. Mild f racture displacement measures up to approximately 4 mm. Acute mildly displaced fracture of the left C 4 transverse process extends into the vertebral foramen on image 367 series 5. Stranding within the b ilateral carotid space is and supraclavicular tissues. Multilevel neural foraminal narrowing. No pneumothorax. Multinodular thyroid. Prominent anterior endplate osteophytosis causes mass effect o n the airway. Mild to moderate prevertebral edema extends from C3-C5. IMPRESSION: 1. Acute comminuted and mildly displaced fracture of the C5 spinous process with fracture extension i nto the bilateral lamina. 2. Acute mildly displaced fracture of the left C4 transverse process with fracture extension into the vertebral foramen. These findings could be correlated with CTA of the neck to exclude vascular injur y. 3. Prevertebral edema is noted at C3-C5 and extends into the carotid spaces and supraclavicular distr ibutions. This is also presumably on a posttraumatic basis. 4. Multilevel degenerative changes as above. ACT 112: Negative or not required by law. The above report was generated using voice recognition software. It may contain grammatical, syntax o r spelling errors. Electronically signed by: Yong Olsen M.D. 04/05/2021 6:39 PM
--- NOTE | 2021-04-05 18:47 | CT Scan Report ---
CT facial bones wo con CLINICAL HISTORY: 89 years-old Male presenting with fall hit head. Acute head and neck injury status post fall COMPARISON STUDY: CT abdomen and cervical spine studies of same day TECHNIQUE: High-resolution CT scan of the facial bones is performed. Images are reviewed in the axia l, sagittal, and coronal planes. IV contrast was not administered for this examination. A dose lower ing technique was utilized adhering to the principles of ALARA. CT DOSE: 1100.26 mGy.cm FINDINGS: The bilateral globes and orbits are unremarkable. Streak artifact from hardware within the oral cavit y. Prevertebral edema with edema within the carotid spaces and supraclavicular distributions. Acute c ervical spine fractures. Mild mucosal thickening of the paranasal sinuses. No acute facial bone fract ure. IMPRESSION: 1. No acute facial bone fracture. 2. Acute cervical spine fractures with associated prevertebral edema are better characterized on the CT cervical spine study of same day. ACT 112: Negative or not required by law. The above report was generated using voice recognition software. It may contain grammatical, syntax o r spelling errors. Electronically signed by: Yong Olsen M.D. 04/05/2021 6:46 PM
[2021-04-05] MEDS ORDERED: OPTIRAY 320 125ml IV ONE (19:36)
--- NOTE | 2021-04-05 20:06 | XRay Report ---
XR thoracic spine 3V routine HISTORY: 89 years-old Male upper back pain acute upper back pain COMPARISON: CT cervical spine of same day, CT thoracic spine 09/01/2020 TECHNIQUE: 3 views of the thoracic spine FINDINGS: Study is limited secondary to positioning. The subacute to chronic fracture of the T6 segment is bett er seen on comparison CT. Moderate multilevel intervertebral disc space narrowing with bridging osteo phytosis and mild facet arthrosis redemonstrated. No definite acute fracture or subluxation identifie d. Cardiomegaly. IMPRESSION: No acute fracture or subluxation identified. ACT 112: Negative or not required by law. The above report was generated using voice recognition software. It may contain grammatical, syntax o r spelling errors. Electronically signed by: Yong Olsen M.D. 04/05/2021 8:05 PM
--- NOTE | 2021-04-05 20:14 | CT Scan Report ---
CT angio neck with con CLINICAL HISTORY: 89 years-old Male with Cervical spine fractures. Acute neck pain with cervical s pine fractures COMPARISON STUDY: CT cervical spine of same day TECHNIQUE: Following the IV administration of 118 mL of Optiray, CT angiogram of the neck was perform ed from the aortic arch to the skull base. Images are reviewed in the axial, sagittal, and coronal pl anes. 3-D MIPS images are created and assessed. IV contrast was administered without complication. Al l measurements were calculated based on NASCET criteria. A dose lowering technique was utilized adhe ring to the principles of ALARA. CT DOSE: 571.05 mGy.cm FINDINGS: Three-vessel morphology of the thoracic aortic arch. Patency of the innominate and imaged subclavian arteries. Mild atherosclerosis of the common carotid arteries, right greater than left carotid bulbs and internal carotid arteries without high-grade stenosis. Multifocal mild and minimal narrowing and irregularity involves the distal cervical segments of the bilateral internal carotid arteries which i s also likely secondary to atherosclerotic vascular disease. A 3 mm saccular aneurysm is incidentally noted involving the right anterior communicating artery on image 370 of series 2. The vertebral emily quin are codominant and widely patent. No aneurysm, dissection, high-grade stenosis or arterial occlu edgar identified. Atherosclerotic plaque at the origin of the vertebral arteries results in mild steno sis bilaterally. Comminuted fractures involving the C5 spinous process with extension into the bilateral lamina. Mild fracture displacement measures up to approximately 4 mm. Acute mildly displaced fracture of the left C4 transverse process extends into the vertebral foramen on image 367 series 5. Moderate prevertebral edema with stranding extending into the bilateral carotid spaces and supraclavicular tissues redemon strated. Multinodular thyroid. IMPRESSION: 1. Acute mildly displaced fracture of the left C4 transverse process with fracture extension into the vertebral foramen redemonstrated. There is no evidence of acute vascular injury of the left vertebra l artery. 2. Multifocal atherosclerotic plaque without high-grade stenosis or arterial occlusion. 3. 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 4. Acute comminuted mildly displaced fracture of the C5 spinous process with extension into the dylon a redemonstrated. 5. Unchanged prevertebral edema. ACT 112: Negative or not required by law. The above report was generated using voice recognition software. It may contain grammatical, syntax o r spelling errors. Electronically signed by: Yong Olsen M.D. 04/05/2021 8:13 PM
[2021-04-05 21:11] LABS: Appearance Urine Cloudy (Clear); Bacteria Urine Automated Negative (Negative); Bilirubin Urine Negative (Negative); Blood Urine 3+ (Negative); Color Urine Dark Yellow; Glucose Urine UA Negative (Negative); Ketones Urine 1+ (Negative); Leukocyte Esterase Urine 2+ (Negative); Nitrite Urine Negative (Negative); Protein Urine 2+ (Negative); RBC Urine Automated >30 /hpf (0-4); Specific Gravity Urine 1.043 (1.000-1.030); Urobilinogen Urine Negative (Negative); WBC Urine Automated >30 /hpf (0-5); pH Urine 5.5 (4.5-7.5)
--- NOTE | 2021-04-05 21:55 | History & Physical Report ---
Date of Service April 05, 2021 Assessment & Plan (1) Cervical spine fracture: Plan: Mr. Gavin is an 89 yo gentleman who was admitted for evaluation of neck pain after a fall. - mildly displaced fracture of the left C4 transverse process and an acute comminuted fracture of the C5 spinous process noted on neck CTA - c-spine collar in place - ortho spine consult placed, although suspect conservative management - tylenol prn for mild pain, morphine prn for moderate pain (2) Contusion of face: Plan: - secondary to fall - face CT normal (3) Afib: Plan: - hold Eliquis given recent traumatic fall (ie patient is still at risk for a subdural bleed) - not in RVR; not currently on rate control therapy (4) Hypoalbuminemia: Plan: - albumin level 2.9 - suspect secondary to protein calorie malnutrition, will check a pre-albumin level to confirm - of note, patient lives alone; inquire about food security - recommend nutrition assessment (5) Cerebral aneurysm: Plan: - 3mm saccular aneurysm noted on head CT - patient is a non-smoker - continue BP control with losartan - low risk of rupture as size is < 7mm - recommend surveillance CTA of head in 2-3 years (6) Leg edema: Plan: - bilateral 1+ pitting edema found on PE - no history of CHF - last echo was in 2018 - check BNP and repeat ECHO (7) Fall: Plan: - cause of neck fracture and facial contusion - etiology uncertain: it was not sound as though it was mechanical (did not trip). Patient does have history of a-fib, although he denied dizziness and palpitations before going down. He remembered the entire event, making seizure unlikely. He was changing positions, so orthostasis is a possibility. - PT/OT ordered, patient may benefit from rehab stay, as he lives alone (8) HTN (hypertension): Plan: - continue home dose losartan (9) Hyperlipidemia: Plan: - continue home dose atorvastatin - multifocal atherosclerotic plaque visualized on head and neck cat scans (although not high grade) (10) BPH w urinary obs/LUTS: Plan: - continue home dose doxazosin (11) GERD (gastroesophageal reflux disease): Plan: - continue pantoprazole (12) Urinary frequency: Plan: - continue trospium (13) Total bilirubin, elevated: Plan: - T bili at 1.8 - direct bili pending (14) Thrombocytopenia: Plan: - platelets at 120 k/Ul - chart review indicates previous low levels DVT ppx: Holding Eliquis given recent fall Diet: Heart Healthy Dispo: Med/tele (due to history of Afib without rate control) Code: Full, I discussed with patient History of Present Illness Primary Care Provider: NO PCP Mr. Gavin is a 89 yo gentleman who came to the [facility] ED for evaluation of neck pain. It started 6 days ago after he feel in his trailer. He subsequently developed a mild headache, neck pain and left shoulder pain. Of note, he is on a blood thinner for underlying atrial fibrillation. As for the cause of the fall, it occurred while he was getting up out of a reclining chair. His arms and legs were weak. He denies any preceding dizziness or heart palpitations. He did not loose consciousness - he has complete memory o f the incident. He reports falling several times in the past few months. At present, he denies any chest pain, SOB, and dizziness. Social Hx: No etoh. No smoking. Lives alone - has a trailer in the [facility]. In the ED, he was afebrile with normal vitals. His WBC was normal, Hgb was mildly low at 13.2, platelets low at 120 k/ul. Lipase was WNL. INR was 1.6. T bili was elevated to 1.8. Electrolytes, kidney and liver function WNL. UA showing 2+ LE, neg nitrites, neg bacteria. Urine culture pending. COVID [address] face [address] showing no acute abnormalities. 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 His shoulder Xray and T spine XR showed no acute abnormalities. He was given 7mg of IV morphine for pain control. Allergies Allergy/AdvReac Type Severity Reaction Status Date / Time lisinopril Allergy Intermediate Lip Verified 04/05/21 17:07 swelling Home Medications Medication Instructions Recorded Confirmed Type apixaban 5 mg tablet 5 mg PO BID 04/17/18 04/05/21 History atorvastatin 20 mg tablet (Lipitor) 20 mg PO DAILY 04/17/18 04/05/21 History potassium chloride 20 mEq 40 meq PO DAILY 04/17/18 04/05/21 History tablet,extended release(part/cryst) (Klor-Con M) trospium 20 mg tablet 20 mg PO BID 04/17/18 04/05/21 History cholecalciferol (vitamin D3) 125 125 mcg PO DAILY 02/07/21 04/05/21 History mcg (5,000 unit) tablet (Vitamin D3) pantoprazole 40 mg tablet,delayed 40 mg PO DAILY 02/07/21 04/05/21 History release doxazosin 4 mg tablet 4 mg PO DAILY 03/11/21 04/05/21 History losartan 50 mg tablet 50 mg PO DAILY 03/11/21 04/05/21 History Past Med/Surg History Medical History (Updated 04/06/21 @ 00:22 by Marsia Emerson MD) Afib on Eliquis, monitored by PCP Arthritis GERD (gastroesophageal reflux disease) Hearing deficit HTN (hypertension) Hx of gallstones Hyperlipidemia Poor historian Urinary frequency Surgical History (Updated 03/26/21 @ 00:09 by Jennifer Costa) History of colonoscopy History of cystoscopy History of herniorrhaphy History of tooth extraction History of total knee replacement R/L Family History Other No family history of adverse response to anesthesia No pertinent family history Social History Smoking Status: Former smoker Second Hand Exposure: No; Hx Alcohol Use: No Hx Substance Use: No Preferred Language: [place] Communication Ability: Effective Streaming Media Specialist Required: No Beliefs That Will Affect Care: None Current Living Situation: Alone How many Children do You have: 6 Other Information That Helps Us Care for You: No Feels Safe at Home: Yes Safety Concerns: Feels Safe At This Time Assistive Devices: Cane, Glasses and Walker Review of Systems Review of Systems: All systems reviewed & are unremarkable except as noted in HPI & below Physical Exam Constitutional: WD/WN, vitals as above cooperative; no acute distress Eyes: + anicteric sclerae + ecchymosis on skin surrounding left eye ENMT: external ear and nose normal, oropharynx normal Neck: trachea midline and + neck tender + Cspine collar in place Respiratory: normal respiratory effort, lungs clear to auscultation no cough Cardiovascular: Rate/Rhythm: regular rate and + irregularly irregular Heart Sounds: normal S1 and normal S2 Extremities: + pedal edema (1+ b/l) Gastrointestinal (Abdomen): normal bowel sounds, soft, nontender, no hepatosplenomegaly Musculoskeletal: Head/Neck/Chest: normocephalic and head atraumatic Skin: no rashes, warm and dry Neurologic: moves all extremities Psychiatric: A+Ox3, euthymic affect Results & Data Results & Data ([facility]) Vital Signs (Past 12 Hours) Vital Signs Temp Pulse Pulse Resp BP BP Pulse Ox 04/05/21 21:00 85 17 140/80 04/05/21 20:30 86 23 04/05/21 20:00 85 24 174/99 H 04/05/21 19:57 79 14 04/05/21 19:00 88 18 149/93 H 96 04/05/21 18:30 91 H 92 H 18 122/97 98 04/05/21 18:00 78 19 04/05/21 17:48 104 H 16 04/05/21 16:59 92 H 20 96 04/05/21 16:30 37.3 C 80 18 165/94 H 98 Supervising Physician Co-Signing Physician Notes Attending addendum: I have physically seen this patient, have supervised the medical residents activities, and agree with the H&P unless as otherwise noted. Assessment and Plan: Cervical spine fracture- CT: Mildly displaced fracture of the left C4 transverse process. Acute comminuted fracture of the C5 spinous process C-spine collar per orthopedic spine consult Dr. Hodgson, will see patient in a.m. Acetaminophen 650 mg p.o. every 6 hours as needed mild pain or fever Morphine 2 mg IV every 4 hours as needed moderate pain Atrial fibrillation/hypertension- Hold Eliquis overnight due to recent fall and concern for possibly precipitated bleed Continue losartan BPH with LUTS- Continue doxazosin, verify the patient was not having orthostatic symptoms contributing to falls Remaining orders and notations as noted Resident Activity Tracking Resident Involvement: Resident Care Provided Care Provided: Adult Hospital Medicine (1) Cervical spine fracture Cervical vertebra fracture level: unspecified cervical vertebra Encounter type: initial encounter Fracture type: closed Qualified Code(s): S12.9XXA - Fracture of neck, unspecified, initial encounter (2) Contusion of face Encounter type: initial encounter Qualified Code(s): S00.83XA - Contusion of other part of head, initial encounter
[2021-04-05] MEDS ORDERED: MoRPHine SULFATE 2 MG/ML CARP IV PRN (23:22)
[2021-04-05] MEDS ORDERED: ONDANSETRON INJ 2 MG/ML 2 ML VIAL IV PRN (23:22)
[2021-04-05] MEDS ORDERED: POLYETHYLENE (MIRALAX) 17 GM PACK PO PRN (23:22)
[2021-04-05] MEDS ORDERED: ACETAMINOPHEN 325 MG TAB PO PRN (23:22)
[2021-04-06] MEDS ORDERED: MoRPHine SULFATE 2 MG/ML CARP IV PRN (00:27)
[2021-04-06] MEDS ORDERED: MoRPHine SULFATE 2 MG/ML CARP ONE (00:35)
[2021-04-06 00:58] LABS: Bilirubin Direct 0.5 mg/dl (0-0.2); Prealbumin 10.5 mg/dl (20-40)
[2021-04-06] MEDS ORDERED: MICONAZOLE NITRATE POWDER 43 GM EXT PRN (07:14)
[2021-04-06 07:45] LABS: Basophils # (auto) 0.01 K/uL (0-0.2); Basophils % (auto) 0.1 %; Eosinophils # (auto) 0.02 K/uL (0-0.5); Eosinophils % (auto) 0.3 %; Hematocrit (blood only) 35.2 % (42-52); Hemoglobin 11.8 g/dL (14.0-18.0); Immature Granulocytes # (auto) 0.03 K/uL (0.00-0.02); Immature Granulocytes % (auto) 0.4 %; Lymphocytes # (auto) 0.62 K/uL (1.2-3.4); Lymphocytes % (auto) 8.4 %; Mean Corpuscular Hemoglobin 32.2 pg (25-34); Mean Corpuscular Hgb Conc 33.5 g/dL (32-36); Mean Corpuscular Volume 96.2 fL (80-100); Mean Platelet Volume 9.8 fL (7.4-10.4); Monocytes # (auto) 0.83 K/uL (0.11-0.59); Monocytes % (auto) 11.3 %; Neutrophils # (auto) 5.84 K/uL (1.4-6.5); Neutrophils % (auto) 79.5 %; Platelet Count 123 K/uL (130-400); RDW Coefficient of Variation 13.1 % (11.5-14.5); RDW Standard Deviation 45.5 fL (36.4-46.3); Red Blood Count 3.66 M/uL (4.7-6.1); White Blood Count 7.35 K/uL (4.8-10.8)
[2021-04-06] MEDS: POTASSIUM CHLORIDE CRTAB 20 MEQ TABCR PO SCH (08:17)
[2021-04-06] MEDS: ATORVASTATIN 20 MG TAB PO SCH (08:17)
[2021-04-06] MEDS: PANTOprazole 40 MG TAB PO SCH (08:17)
[2021-04-06] MEDS: LOSARTAN POTASSIUM 50 MG TAB PO SCH (08:17)
[2021-04-06] MEDS: ACETAMINOPHEN 325 MG TAB PO SCH ×2 (11:45→17:31)
[2021-04-06] MEDS: DOXAZosin MESYLATE 4 MG TAB PO SCH (11:45)
[2021-04-06] MEDS: KETOROLAC TROMETHAMINE 15 MG/ML VIAL IV SCH ×2 (11:46→17:31)
--- NOTE | 2021-04-06 12:36 | Hospitalist Progress Note ---
Date of Service April 06, 2021 Assessment & Plan (1) Cervical spine fracture: Plan: Mr. Gavin is an 89 yo gentleman who was admitted for evaluation of neck pain after a fall. - mildly displaced fracture of the left C4 transverse process and an acute comminuted fracture of the C5 spinous process noted on neck CTA - c-spine collar in place - ortho spine consult placed, although suspect conservative management given location of fractures unlikely to cause severe neurologic impairment requiring surgical fixation - Tylenol and morphine for pain as needed - PT/OT during stay - Pt would benefit from recovery in rehab facility but not entirely amenable at this time. (2) Contusion of face: Plan: - secondary to fall - face CT normal (3) Afib: Plan: - hold Eliquis given recent traumatic fall (ie patient is still at risk for a subdural bleed). - CHADSVASC score of 3 - Given negative head CT and stability thus far, will likely resume Eliquis within next 2 days for anticoagulant benefit - not in RVR; not currently on rate control therapy (4) Hypoalbuminemia: Plan: - albumin level 2.9 - suspect secondary to protein calorie malnutrition, will check a pre-albumin level to confirm - of note, patient lives alone; inquire about food security - recommend nutrition assessment (5) Cerebral aneurysm: Plan: - 3mm saccular aneurysm noted on head CT - patient is a non-smoker - continue BP control with losartan - low risk of rupture as size is < 7mm - recommend surveillance CTA of head in 2-3 years (6) Leg edema: Plan: - bilateral 1+ pitting edema found on PE - no history of CHF - last echo was in 2018 - check BNP and repeat ECHO (7) Fall: Plan: - cause of neck fracture and facial contusion - etiology uncertain: it was not sound as though it was mechanical (did not trip). Patient does have history of a-fib, although he denied dizziness and palpitations before going down. He remembered the entire event, making seizure unlikely. He was changing positions, so orthostasis is a possibility. - PT/OT ordered, patient may benefit from rehab stay, as he lives alone (8) HTN (hypertension): Plan: - continue home dose losartan (9) Hyperlipidemia: Plan: - continue home dose atorvastatin - multifocal atherosclerotic plaque visualized on head and neck cat scans (although not high grade) (10) BPH w urinary obs/LUTS: Plan: - continue home dose doxazosin (11) GERD (gastroesophageal reflux disease): Plan: - continue pantoprazole (12) Urinary frequency: Plan: - continue trospium (13) Total bilirubin, elevated: Plan: - T bili at 1.8 - direct bili pending (14) Thrombocytopenia: Plan: - platelets at 120 k/Ul - chart review indicates previous low levels DVT ppx: Holding Eliquis given recent fall Diet: Heart Healthy Dispo: Med/tele (due to history of Afib without rate control) Code: Full, I discussed with patient Admission and Anticipated Discharge Date Admission Date: April 05, 2021 Supervising Physician Co-Signing Physician Notes I personally examined the patient and verified all bagley points of history and exam, discussed case, and agree with decision making with Dr Salazar. Still has neck pain, going down the left arm and shoulder more than right. No headache. Really wants to go home not rehab. Lives alone. Vitals noted, in general he is awake and alert no distress, although appears somewhat uncomfortable and hard c-collar. HEENT bruised left eye, no overt lacerations. Neck in hard cervical collar. Breathing unlabored no accessory muscle use good effort. Skin shows no rashes no pallor or icterus. Neuro without focal deficits. Follow-up, cervical fracturesappear overall stable, likely will be immobilization, time, healingbut definitely will appreciate orthopedics input given multilevel cervical spinal fracture. Pain control, PT/OT. Falls and weaknessPT/OT eval and treat, barring really surprisingly positive input from PT and OT, I really suspect patient would do best at a rehab facility. He is quite reticent to this idea, and moves the conversation to trying to sell me on how home would be safe, despite the fact that he had this fall with significant injuries at home. We will continue to further discussions after getting input from PT and OT. Hold apixaban for another day or 2 to allow improvement in bleeding/swelling Otherwise as above Subjective Pt still reporting significant neck pain with 7/10 severity but slightly improved from admission with pain medication. Also associated with some left shoulder pain. Able to move his arms without difficulty, tolerating C-collar with minor discomfort. Denying headache, weakness, numbness, paresthesias, bowel/bladder incontinence. Review of Systems Review of Systems: +Neck and L shoulder pain Physical Exam Constitutional: WD/WN, vitals as above cooperative; no acute distress Eyes: + anicteric sclerae Neck: trachea midline and + neck tender Respiratory: normal respiratory effort, lungs clear to auscultation no cough Cardiovascular: Rate/Rhythm: regular rate and + irregularly irregular Heart Sounds: normal S1 and normal S2 Extremities: + pedal edema (1+ b/l) Gastrointestinal (Abdomen): normal bowel sounds, soft, nontender, no hepatosplenomegaly Musculoskeletal: Head/Neck/Chest: normocephalic and head atraumatic Skin: no rashes, warm and dry Neurologic: moves all extremities 5/5 strength of upper extremities, sensation intact Psychiatric: A+Ox3, euthymic affect Results & Data Results & Data ([facility]) Vital Signs (Past 12 Hours) Vital Signs Temp Pulse Resp BP Pulse Ox 04/06/21 10:49 36.8 C 64 16 97/57 L 91 04/06/21 09:56 96 04/06/21 07:41 36.3 C L 74 16 129/76 04/06/21 03:00 36.5 C 81 18 124/71 97 Resident Activity Tracking Resident Involvement: Resident Care Provided Care Provided: Adult Hospital Medicine (1) Cervical spine fracture Cervical vertebra fracture level: unspecified cervical vertebra Encounter type: initial encounter Fracture type: closed Qualified Code(s): S12.9XXA - Fracture of neck, unspecified, initial encounter (2) Contusion of face Encounter type: initial encounter Qualified Code(s): S00.83XA - Contusion of other part of head, initial encounter
[2021-04-06 12:47] LABS: Estimated Average Glucose 146 mg/dl; Hemoglobin A1C 6.7 % (4.5-5.6)
--- NOTE | 2021-04-06 14:58 | XCELERA ---
[id number]
--- NOTE | 2021-04-06 15:44 | Billing Data ---
Date of Service April 06, 2021 Coding Level of Care Code 79332 Subseq Hosp Care Lvl 3
--- NOTE | 2021-04-06 15:46 | Orthopedic Consultation ---
Date of Consultation April 06, 2021 Assessment & Plan (1) Cervical spine fracture: At this time patient does have a transverse foraminal fracture at C4 with the lamina fracture of C5. 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 We will recommend cervical immobilization for at least 6 weeks. He may remove the collar to eat. He may require follow-up CAT scan to determine healing in the next several weeks. Again I hope we can treat this nonoperatively. History of Present Illness Reason for Consultation: Cervical spine fracture Attending Physician: Vipul Cano DO History of Present Illness This is a very pleasant 89-year-old male that presents the emergency room last evening after a fall at home. He has been diagnosed with a cervical spine fracture. This afternoon he is tolerating his collar. Complains of some left elbow pain denies any significant cervicalgia. Denies any numbness or tingling in the upper extremities. Allergies Allergy/AdvReac Type Severity Reaction Status Date / Time lisinopril Allergy Intermediate Lip Verified 04/05/21 17:07 swelling Home Medications Medication Instructions Recorded Confirmed Type apixaban 5 mg tablet 5 mg PO BID 04/17/18 04/05/21 History atorvastatin 20 mg tablet (Lipitor) 20 mg PO DAILY 04/17/18 04/05/21 History potassium chloride 20 mEq 40 meq PO DAILY 04/17/18 04/05/21 History tablet,extended release(part/cryst) (Klor-Con M) trospium 20 mg tablet 20 mg PO BID 04/17/18 04/05/21 History cholecalciferol (vitamin D3) 125 125 mcg PO DAILY 02/07/21 04/05/21 History mcg (5,000 unit) tablet (Vitamin D3) pantoprazole 40 mg tablet,delayed 40 mg PO DAILY 02/07/21 04/05/21 History release doxazosin 4 mg tablet 4 mg PO DAILY 03/11/21 04/05/21 History losartan 50 mg tablet 50 mg PO DAILY 03/11/21 04/05/21 History Patient History Medical History (Updated 04/06/21 @ 00:22 by Marisa Emerson MD) Afib on Eliquis, monitored by PCP Arthritis GERD (gastroesophageal reflux disease) Hearing deficit HTN (hypertension) Hx of gallstones Hyperlipidemia Poor historian Urinary frequency Surgical History (Updated 03/26/21 @ 00:09 by Background Daemon) History of colonoscopy History of cystoscopy History of herniorrhaphy History of tooth extraction History of total knee replacement R/L Family History Other No family history of adverse response to anesthesia No pertinent family history Social History Smoking Status: Former smoker Second Hand Exposure: No; Hx Alcohol Use: No Hx Substance Use: No Preferred Language: Upper Sorbian Communication Ability: Effective Electrical Manager Required: No Beliefs That Will Affect Care: None Current Living Situation: Alone How many Children do You have: 6 Other Information That Helps Us Care for You: No Feels Safe at Home: Yes Safety Concerns: Feels Safe At This Time Assistive Devices: Cane, Glasses and Walker Physical Exam Physical Exam: Patient's collar is in place. He demonstrates regional strength testing of the upper extremities. He does appear comfortable. Results & Data ([facility]) Vital Signs (Past 12 Hours) Vital Signs Temp Pulse Pulse Resp BP BP Pulse Ox 04/06/21 15:00 36.5 C 74 14 90/47 L 92/59 L 94 04/06/21 10:49 36.8 C 64 16 97/57 L 91 04/06/21 09:56 96 04/06/21 07:41 36.3 C L 74 16 129/76 04/06/21 07:00 71 (1) Cervical spine fracture Cervical vertebra fracture level: unspecified cervical vertebra Encounter type: initial encounter Fracture type: closed Qualified Code(s): S12.9XXA - Fracture of neck, unspecified, initial encounter
[2021-04-06] MEDS ORDERED: LANTUS PER UNIT CHARGE SQ STA (16:28)
[2021-04-06] MEDS ORDERED: DEXTROSE 50% 50 ML SYRINGE IV PRN (16:29)
[2021-04-06] MEDS ORDERED: GLUCOSE 10 TABS/TUBE PO PRN (16:29)
[2021-04-06] MEDS ORDERED: CARBOHYDRATES FOR HYPOGLYCEMIA PO PRN (16:29)
[2021-04-06] MEDS ORDERED: GLUCAGON FOR INJ 1 MG VIAL SQ PRN (16:29)
[2021-04-06] MEDS ORDERED: GLUCOSE 40% GEL 15 GM TUBE PO PRN (16:29)
[2021-04-06] MEDS: INSULIN ASPART 100 UNITS/ML 3 ML PEN SC SCH ×2 (17:55→20:36)
--- NOTE | 2021-04-06 19:57 | Billing Data ---
Date of Service April 06, 2021 Coding Level of Care Code 01043 Initial Inpt Care Lvl 3
[2021-04-06] MEDS: INSULIN GLARGINE SOLOSTAR 100 UNITS/ML 3 ML PEN SC SCH (20:37)
[2021-04-07] MEDS: ACETAMINOPHEN 325 MG TAB PO SCH ×5 (00:21→23:57)
[2021-04-07] MEDS: KETOROLAC TROMETHAMINE 15 MG/ML VIAL IV SCH ×5 (00:22→23:57)
[2021-04-07 06:33] LABS: Hematocrit (blood only) 35.4 % (42-52); Hemoglobin 11.8 g/dL (14.0-18.0); Mean Corpuscular Hemoglobin 31.9 pg (25-34); Mean Corpuscular Hgb Conc 33.3 g/dL (32-36); Mean Corpuscular Volume 95.7 fL (80-100); Mean Platelet Volume 9.5 fL (7.4-10.4); Platelet Count 111 K/uL (130-400); RDW Coefficient of Variation 13.1 % (11.5-14.5); RDW Standard Deviation 45.9 fL (36.4-46.3); White Blood Count 5.11 K/uL (4.8-10.8)
[2021-04-07 07:06] LABS: BUN Creatinine Ratio 23.8 (10-20); Calcium 8.3 mg/dl (8.5-10.1); Creatinine Clr Calc Pharmacy 55.5 ml/min; Est GFR (African American) 68.6 ml/min; Est GFR (Non-African American) 59.2 ml/min; Potassium 3.5 mmol/L (3.5-5.1)
[2021-04-07] MEDS: ATORVASTATIN 20 MG TAB PO SCH (08:05)
[2021-04-07] MEDS: LOSARTAN POTASSIUM 50 MG TAB PO SCH (08:05)
[2021-04-07] MEDS: POTASSIUM CHLORIDE CRTAB 20 MEQ TABCR PO SCH (08:05)
[2021-04-07] MEDS: DOXAZosin MESYLATE 4 MG TAB PO SCH (08:06)
[2021-04-07] MEDS: PANTOprazole 40 MG TAB PO SCH (08:06)
[2021-04-07] MEDS: INSULIN GLARGINE SOLOSTAR 100 UNITS/ML 3 ML PEN SC SCH ×2 (08:15→20:40)
[2021-04-07] MEDS: INSULIN ASPART 100 UNITS/ML 3 ML PEN SC SCH ×4 (08:15→20:39)
--- NOTE | 2021-04-07 16:41 | Hospitalist Progress Note ---
Date of Service April 07, 2021 Assessment & Plan (1) Cervical spine fracture: Plan: Mr. Gavin is an 89 yo gentleman who was admitted for evaluation of neck pain after a fall. - mildly displaced fracture of the left C4 transverse process and an acute comminuted fracture of the C5 spinous process noted on neck CTA - c-spine collar in place - ortho spine consult placed, although suspect conservative management given location of fractures unlikely to cause severe neurologic impairment requiring surgical fixation - Tylenol and morphine for pain as needed - PT/OT during stay - Pt agreeable to inpatient rehab, case management attempting to find placement. (2) Contusion of face: Plan: - secondary to fall - face CT normal (3) Afib: Plan: - hold Eliquis given recent traumatic fall (ie patient is still at risk for a subdural bleed). 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 Patient does have history of a-fib, although he denied dizziness and palpitations before going down. He remembered the entire event, making seizure unlikely. He was changing positions, so orthostasis is a possibility. - PT/OT ordered, patient may benefit from rehab stay, as he lives alone (8) HTN (hypertension): Plan: - continue home dose losartan (9) Hyperlipidemia: Plan: - continue home dose atorvastatin - multifocal atherosclerotic plaque visualized on head and neck cat scans (although not high grade) (10) BPH w urinary obs/LUTS: Plan: - continue home dose doxazosin (11) GERD (gastroesophageal reflux disease): Plan: - continue pantoprazole (12) Urinary frequency: Plan: - continue trospium (13) Total bilirubin, elevated: Plan: - T bili at 1.8 - direct bili pending (14) Thrombocytopenia: Plan: - platelets at 120 k/Ul - chart review indicates previous low levels DVT ppx: Holding Eliquis given recent fall Diet: Heart Healthy Dispo: Med/tele (due to history of Afib without rate control) Code: Full, I discussed with patient Admission and Anticipated Discharge Date Admission Date: April 05, 2021 Supervising Physician Co-Signing Physician Notes I personally examined the patient and verified all bagley points of history and exam, discussed case, and agree with decision making with Dr Salazar. Neck pain doing better. After extensive discussions, he realizes my concerns about his safety at home, not just getting therapy, and notes as long as the finances are okay he is willing to go to rehab. Vitals noted, in general he is awake and alert no distress, although appears somewhat uncomfortable and hard c-collar. HEENT bruised left eye, no overt lacerations. Neck in hard cervical collar. Breathing unlabored no accessory muscle use good effort. Skin shows no rashes no pallor or icterus. Neuro without focal deficits. Follow-up, cervical fracturesappear overall stable, continue immobilization and give time for healingoutpatient orthopedics follow-up Pain control, PT/OT. Falls and weaknessPT/OT eval and treat, for rehab Resume apixaban in the next day or so Otherwise as above Subjective Pt still reporting significant neck pain with 5/10 severity but slightly improved from yesterday with pain medication. Able to move his arms without difficulty, tolerating C-collar with minor discomfort. Denying headache, weakness, numbness, paresthesias, bowel/bladder incontinence. Review of Systems Review of Systems: +Neck and L shoulder pain Physical Exam Constitutional: WD/WN, vitals as above cooperative; no acute distress Eyes: + anicteric sclerae Neck: trachea midline and + neck tender Respiratory: normal respiratory effort, lungs clear to auscultation no cough Cardiovascular: Rate/Rhythm: regular rate and + irregularly irregular Heart Sounds: normal S1 and normal S2 Extremities: + pedal edema (1+ b/l) Gastrointestinal (Abdomen): normal bowel sounds, soft, nontender, no hepatosplenomegaly Musculoskeletal: Head/Neck/Chest: normocephalic and head atraumatic Skin: no rashes, warm and dry Neurologic: moves all extremities Psychiatric: A+Ox3, euthymic affect Results & Data Results & Data ([facility]) Vital Signs (Past 12 Hours) Vital Signs Temp Pulse Pulse Resp BP Pulse Ox 04/07/21 15:07 36.6 C 81 19 113/74 98 04/07/21 15:06 84 04/07/21 07:25 36.7 C 73 18 167/84 H 98 Resident Activity Tracking Resident Involvement: Resident Care Provided Care Provided: Adult Hospital Medicine (1) Cervical spine fracture Cervical vertebra fracture level: unspecified cervical vertebra Encounter type: initial encounter Fracture type: closed Qualified Code(s): S12.9XXA - Fracture of neck, unspecified, initial encounter (2) Contusion of face Encounter type: initial encounter Qualified Code(s): S00.83XA - Contusion of other part of head, initial encounter
--- NOTE | 2021-04-07 17:04 | Billing Data ---
Date of Service April 07, 2021 Coding Level of Care Code 04015 Subseq Hosp Care Lvl 2
[2021-04-08] MEDS: KETOROLAC TROMETHAMINE 15 MG/ML VIAL IV SCH ×2 (04:32→12:09)
[2021-04-08] MEDS: ACETAMINOPHEN 325 MG TAB PO SCH ×2 (04:32→12:09)
[2021-04-08 08:15] LABS: Hemoglobin 12.4 g/dL (14.0-18.0); Mean Corpuscular Hemoglobin 32.1 pg (25-34); Mean Corpuscular Hgb Conc 33.5 g/dL (32-36); Mean Corpuscular Volume 95.9 fL (80-100); Mean Platelet Volume 9.8 fL (7.4-10.4); Platelet Count 140 K/uL (130-400); RDW Coefficient of Variation 13.1 % (11.5-14.5); RDW Standard Deviation 45.9 fL (36.4-46.3); Red Blood Count 3.86 M/uL (4.7-6.1)
[2021-04-08 08:49] LABS: BUN Creatinine Ratio 23.3 (10-20); Calcium 8.8 mg/dl (8.5-10.1); Creatinine Clr Calc Pharmacy 58.3 ml/min; Est GFR (African American) 72.6 ml/min; Est GFR (Non-African American) 62.6 ml/min
[2021-04-08] MEDS: INSULIN ASPART 100 UNITS/ML 3 ML PEN SC SCH ×2 (09:38→12:12)
[2021-04-08] MEDS: INSULIN GLARGINE SOLOSTAR 100 UNITS/ML 3 ML PEN SC SCH (09:40)
[2021-04-08] MEDS: ATORVASTATIN 20 MG TAB PO SCH (09:41)
[2021-04-08] MEDS: PANTOprazole 40 MG TAB PO SCH (09:41)
[2021-04-08] MEDS: POTASSIUM CHLORIDE CRTAB 20 MEQ TABCR PO SCH (09:41)
[2021-04-08] MEDS: DOXAZosin MESYLATE 4 MG TAB PO SCH (09:41)
[2021-04-08] MEDS: LOSARTAN POTASSIUM 50 MG TAB PO SCH (09:41)
--- NOTE | 2021-04-08 10:48 | Hospitalist Progress Note ---
Date of Service April 08, 2021 Assessment & Plan (1) Cervical spine fracture: Plan: Mr. Gavin is an 89 yo gentleman who was admitted for evaluation of neck pain after a fall. - mildly displaced fracture of the left C4 transverse process and an acute comminuted fracture of the C5 spinous process noted on neck CTA - c-spine collar in place - ortho spine consult placed, although suspect conservative management given location of fractures unlikely to cause severe neurologic impairment requiring surgical fixation - Tylenol and morphine for pain as needed - PT/OT during stay - Improving in regard to pain control and no neurologic deficits thus far - Pt agreeable to inpatient rehab, case management attempting to find placement. (2) Contusion of face: Plan: - secondary to fall - face CT normal (3) Afib: Plan: - held Eliquis given recent traumatic fall (ie patient is still at risk for a subdural bleed). - CHADSVASC score of 3 - Given negative head CT and stability thus far, resuming home Eliquis today - not in RVR; not currently on rate control therapy (4) Hypoalbuminemia: Plan: - albumin level 2.9 on admission - Likely due to protein calorie malnutrition (5) Cerebral aneurysm: Plan: - 3mm saccular aneurysm noted on head CT - patient is a non-smoker - continue BP control with losartan - low risk of rupture as size is < 7mm - recommend surveillance CTA of head in 2-3 years (6) Leg edema: Plan: - bilateral 1+ pitting edema found on PE - no history of CHF - last echo was in 2018 - Reassuring TTE with EF > 70% this hospitalization (7) Fall: Plan: - cause of neck fracture and facial contusion - etiology uncertain: it was not sound as though it was mechanical (did not trip). Patient does have history of a-fib, although he denied dizziness and palpitations before going down. He remembered the entire event, making seizure unlikely. He was changing positions, so orthostasis is a possibility. - PT/OT ordered, patient may benefit from rehab stay, as he lives alone (8) HTN (hypertension): Plan: - continue home dose losartan (9) Hyperlipidemia: Plan: - continue home dose atorvastatin - multifocal atherosclerotic plaque visualized on head and neck cat scans (although not high grade) (10) BPH w urinary obs/LUTS: Plan: - continue home dose doxazosin (11) GERD (gastroesophageal reflux disease): Plan: - continue pantoprazole (12) Urinary frequency: Plan: - continue trospium (13) Total bilirubin, elevated: Plan: - T bili at 1.8 - direct bili pending (14) Thrombocytopenia: Plan: - platelets at 120 k/Ul - chart review indicates previous low levels DVT ppx: Home Eliquis Diet: Heart Healthy Dispo: Med/tele (due to history of Afib without rate control) Code: Full, I discussed with patient Admission and Anticipated Discharge Date Admission Date: April 05, 2021 Subjective Pt's neck pain improving compared to yesterday. Able to move arms without difficulty, tolerating C collar well. Denies headache, weakness, numbness, paresthesias, bowel/bladder incontinence. Questioned if he needs to go to rehab, was seemingly ok with the idea. Review of Systems Review of Systems: +Neck and L shoulder pain Physical Exam Constitutional: WD/WN, vitals as above cooperative; no acute distress Eyes: + anicteric sclerae Neck: trachea midline and + neck tender Respiratory: normal respiratory effort, lungs clear to auscultation no cough Cardiovascular: Rate/Rhythm: regular rate and + irregularly irregular Heart Sounds: normal S1 and normal S2 Extremities: + pedal edema (1+ b/l) Gastrointestinal (Abdomen): normal bowel sounds, soft, nontender, no hepatosplenomegaly Musculoskeletal: Head/Neck/Chest: normocephalic and head atraumatic Skin: no rashes, warm and dry Neurologic: moves all extremities Psychiatric: A+Ox3, euthymic affect Results & Data Results & Data ([facility]) Vital Signs (Past 12 Hours) Vital Signs Temp Pulse Pulse Resp BP BP Pulse Ox 04/08/21 09:37 36.7 C 83 20 168/95 H 97 04/08/21 07:00 77 04/08/21 05:27 71 04/08/21 03:03 36.5 C 69 18 151/93 H 97 04/07/21 23:34 36.5 C 70 18 129/76 97 Resident Activity Tracking Resident Involvement: Resident Care Provided Care Provided: Adult Hospital Medicine (1) Cervical spine fracture Cervical vertebra fracture level: unspecified cervical vertebra Encounter type: initial encounter Fracture type: closed Qualified Code(s): S12.9XXA - Fracture of neck, unspecified, initial encounter (2) Contusion of face Encounter type: initial encounter Qualified Code(s): S00.83XA - Contusion of other part of head, initial encounter
[2021-04-08] MEDS ORDERED: APIXABAN 5 MG TABLET PO SCH (11:00)
--- NOTE | 2021-04-08 12:15 | Discharge Summary ---
Date of Service April 08, 2021 Admission HPI Per Admitting Provider Mr. Gavin is a 89 yo gentleman who came to the [facility] ED for evaluation of neck pain. It started 6 days ago after he feel in his trailer. He subsequently developed a mild headache, neck pain and left shoulder pain. Of note, he is on a blood thinner for underlying atrial fibrillation. As for the cause of the fall, it occurred while he was getting up out of a reclining chair. His arms and legs were weak. He denies any preceding dizziness or heart palpitations. He did not loose consciousness - he has complete memory of the incident. He reports falling several times in the past few months. At present, he denies any chest pain, SOB, and dizziness. Social Hx: No etoh. No smoking. Lives alone - has a trailer in the [facility]. In the ED, he was afebrile with normal vitals. His WBC was normal, Hgb was m ildly low at 13.2, platelets low at 120 k/ul. Lipase was WNL. INR was 1.6. T bili was elevated to 1.8. Electrolytes, kidney and liver function WNL. UA showing 2+ LE, neg nitrites, neg bacteria. Urine culture pending. COVID [address] face [address] showing no acute abnormalities. 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 His shoulder Xray and T spine XR showed no acute abnormalities. He was given 7mg of IV morphine for pain control. Admission Exam Per Admitting Provider Constitutional: WD/WN, vitals as above cooperative; no acute distress Eyes: + anicteric sclerae + ecchymosis on ski n surrounding left eye ENMT: external ear and nose normal, oropharynx normal Neck: trachea midline and + neck tender + Cspine collar in place Respiratory: normal respiratory effort, lungs clear to auscultation no cough Cardiovascular: Rate/Rhythm: regular rate and + irregularly irregular Heart Sounds: normal S1 and normal S2 Extremities: + pedal edema (1+ b/l) Gastrointestinal (Abdomen): normal bowel sounds, soft, nontender, no hepatosplenomegaly Musculoskeletal: Head/Neck/Chest: normocephalic and head atraumatic Skin: no rashes, warm and dry Neurologic: moves all extremities Psychiatric: A+Ox3, euthymic affect Principal Diagnosis Cervical spine fracture Discharge Exam Constitutional WD/WN, vitals as above cooperative; no acute distress Eyes + anicteric sclerae Neck trachea midline and + neck tender Respiratory normal respiratory effort, lungs clear to auscultation no cough Cardiovascular Rate/Rhythm: regular rate and + irregularly irregular Heart Sounds: normal S1 and normal S2 Extremities: + pedal edema (1+ b/l) Gastrointestinal (Abdomen) normal bowel sounds, soft, nontender, no hepatosplenomegaly Musculoskeletal Head/Neck/Chest: normocephalic and head atraumatic Skin no rashes, warm and dry Neurologic moves all extremities Psychiatric A+Ox3, euthymic affect Discharge Data Allergies Allergy/AdvReac Type Severity Reaction Status Date / Time lisinopril Allergy Intermediate Lip Verified 04/05/21 17:07 swelling Consultations 04/05/21 20:48 ED Decision to Admit Stat 04/05/21 21:53 Consult Orthopedic Surgery Routine Ordered Studies 04/05/21 16:59 CT cervical spine wo con Stat CT facial bones wo con Stat CT head/brain wo con Stat 04/05/21 19:00 CT angio neck with con Stat Hospital Course (1) Cervical spine fracture: Mr. Gavin is an 89 yo gentleman who was admitted for evaluation of neck pain after a fall. Hospitalized 04/05, discharged 04/08. - mildly displaced fracture of the left C4 transverse process and an acute comminuted fracture of the C5 spinous process noted on neck CTA - c-spine collar in place - ortho spine consult placed, although suspect conservative management given location of fractures unlikely to cause severe neurologic impairment requiring surgical fixation - PT/OT during stay - Improving in regard to pain control and no neurologic deficits thus far - Pt agreeable to inpatient rehab, discharged today to [facility] for rehab Diabetes -A1C of 6.7% on admission -Lantus 5u BID and ISS during stay. BSGs in low 100s during hospitalization, continue Lantus 5u BID with ISS at rehab with eventual adjustment to oral agents (2) Contusion of face: - secondary to fall - face CT normal (3) Afib: - held Eliquis given recent traumatic fall (ie patient is still at risk for a subdural bleed). - CHADSVASC score of 3 - Given negative head CT and stability thus far, ok to resume home Eliquis after discharge - not in RVR; not currently on rate control therapy (4) Hypoalbuminemia: - albumin level 2.9 on admission - Likely due to protein calorie malnutrition (5) Cerebral aneurysm: - 3mm saccular aneurysm noted on head CT - patient is a non-smoker - continue BP control with losartan - low risk of rupture as size is < 7mm - recommend surveillance CTA of head in 2-3 years (6) Leg edema: - bilateral 1+ pitting edema found on PE - no history of CHF - last echo was in 2018 - Reassuring TTE with EF > 70% this hospitalization (7) Fall: - cause of neck fracture and facial contusion - etiology uncertain: it was not sound as though it was mechanical (did not trip). Patient does have history of a-fib, although he denied dizziness and p alpitations before going down. He remembered the entire event, making seizure unlikely. He was changing positions, so orthostasis is a possibility. - PT/OT ordered (8) HTN (hypertension): - continue home dose losartan (9) Hyperlipidemia: - continue home dose atorvastatin - multifocal atherosclerotic plaque visualized on head and neck cat scans (although not high grade) (10) BPH w urinary obs/LUTS: - continue home dose doxazosin (11) GERD (gastroesophageal reflux disease): - continue pantoprazole (12) Urinary frequency: - continue trospium (13) Total bilirubin, elevated: - T bili at 1.8 - direct bili pending (14) Thrombocytopenia: - platelets at 120 k/Ul - chart review indicates previous low levels DVT ppx: Home Eliquis Diet: Heart Healthy Dispo: Med/tele (due to history of Afib without rate control) Code: Full, I discussed with patient Total Time Total Time Spent Total Time Spent (In Minutes): Less than 30 Discharge Plan Discharge Items Patient Disposition: Transfer Inpatient Rehab Fac Reason For Visit: NECK FRACTURE Discharge Diagnosis: Cervical spine fracture Activity: Per Instructions section Non-emergency contact: Primary Care Provider Call non-emergency contact if: you have any medication questions, your pain is not controlled and your pain is worsening Follow-up/Referrals: PCP,NO [Primary Care Provider] - Diet: Carb Consistent or DM2 Addtl Attending Provider Instructions: You were admitted to the hospital for a cervical spine fracture, referring to the bones that make up your spine at the neck. The fractures occurred in places that don't need to be treated surgically. The fracture will heal over the course of the next few months. To assist in this process, you will be discharged to inpatient rehab at [facility]. It's unclear how long you will need to be at rehab for, but it's crucial you do your best in the various physical therapy/occupational therapy exercises and rehab activities. This will hasten your recovery. Pending Studies at Discharge: No Stand-Alone Forms: [facility] Skilled Items Patient informed of condition?: Yes DNR: No Discharge Level of Care: Acute rehab Communicable Disease: No Discharge Prognosis: Improving Lines: None Urinary Catheter: No Medications and DC Order Prescriptions: Continued atorvastatin [Lipitor] 20 mg tablet 20 mg PO DAILY RF: 0 potassium chloride [Klor-Con M20] 20 mEq tablet,ER particles/crystals 40 meq PO DAILY RF: 0 trospium 20 mg tablet 20 mg PO BID RF: 0 apixaban 5 mg Tablet 5 mg PO BID RF: 0 cholecalciferol (vitamin D3) [Vitamin D3] 125 mcg (5,000 unit) Tablet 125 mcg PO DAILY RF: 0 pantoprazole 40 mg Tablet,Delayed Release (Dr/Ec) 40 mg PO DAILY RF: 0 losartan 50 mg tablet 50 mg PO DAILY RF: 0 doxazosin 4 mg tablet 4 mg PO DAILY RF: 0 Discharge Orders: Discharge Order (Routine); Ordered 04/08/21 Ordered By: Teri Vasques/Other Patient Handouts: A1C, Managing Type 2 Diabetes Admission Data Admit Date/Time: 04/05/21 21:46 Attending Provider: Vipul Cano Admit Provider: Marisa Emerson Primary Care Provider: PCP,NO Other Providers: Garcia Hodgson ; Armani Braun ; [facility] ; [facility] Other Interventions: Discharge Summary Assessment (RN) Last Done: 04/08/21 13:09 Supervising Physician Co-Signing Physician Notes I personally examined the patient and verified all bagley points of history and exam, discussed case, and agree with decision making with Dr Salazar. Set to go to rehab. No new issues. Vitals noted, in general he is awake and alert no distress, although appears somewhat uncomfortable and hard c-collar. HEENT bruised left eye, no overt lacerations. Neck in hard cervical collar. Breathing unlabored no accessory muscle use good effort. Skin shows no rashes no pallor or icterus. Neuro without focal deficits. Follow-up, cervical fracturesappear overall stable, continue immobilization and give time for healingoutpatient orthopedics follow-up Pain control, PT/OT to be ongoing at rehab Falls and weaknessPT/OT eval and treat, for rehab today Resume apixaban at discharge Otherwise as above Resident Activity Tracking Resident Involvement: Resident Care Provided Care Provided: Adult Hospital Medicine
--- NOTE | 2021-04-08 16:17 | Billing Data ---
Date of Service April 08, 2021 Coding Level of Care Code D/C DAY MANAGEMENT <30 MINS
--- NOTE | 2021-04-18 09:19 | Coding Query ---
MALNUTRITION To promote full compliance with coding requirements relating to patient care, physician participation is requested in all cases of medical coder uncertainty. Please assist us with the question(s) below: Please place an X within the parenthesis (x). If other, please document: "Malnutrition" is documented in this record from H&P to Discharge Summary. If possible, please check the box that provides a more specific diagnosis: (x ) Mild malnutrition ( ) Moderate malnutrition ( ) Severe malnutrition ( ) Protein malnutrition (kwashiorkor) ( ) Severe protein calorie malnutrition (x ) Protein calorie malnutrition, unspecified ( ) Other (please specify): Thank you Ava DRAKE
== END 2021-04-08 15:05 | DRG 552 ==
LOC: ED 16:39 → SUATTDRO 21:46 → 2N 21:46